=== PATIENT | male | born 1955 | race Caucasian/White ===

== ENCOUNTER 2019-11-17 10:13 | Observation (INO) | payer OTHER ==
--- NOTE | 2019-11-17 10:47 | ED ---
General Adult HPI - General Chief complaint: Chest Pain Stated complaint: chest pain Time Seen by Provider: 11/17/19 10:21 Source: patient Mode of arrival: wheelchair Limitations: no limitations - History of Present Illness Initial comments: Dictation was produced using [employer] dictation software. please excuse any grammatical, word or spelling errors. This patient was cared for during a federal and state declared state of emergency secondary to Covid 19 Chief Complaint: 64-year-old male past medical history dyslipidemia, migraines and depression presents with chest pain. History of Present Illness: 64-year-old male who presents with chest pain. Patient reports that his symptoms started this morning after waking up. States that the pain as sharp located to his substernal area radiates to his back. Patient states his pain is exacerbated by movement. Patient has any shortness of breath. He states that his symptoms are more improved since when they initially started. Currently he reports that his pain is very. He also complains of left paracervical neck and trapezius tightness. Patient states the pain also radiates slightly to his left shoulder. Denies any numbness or paresthesias to his arm. The ROS documented in this emergency department record has been reviewed and confirmed by me. Those systems with pertinent positive or negative responses have been documented in the HPI. All other systems are other negative and/or noncontributory. PHYSICAL EXAM: General Impression: Alert and oriented x3, not in acute distress HEENT: Normocephalic atraumatic, extra-ocular movements intact, pupils equal and reactive to light bilaterally, mucous membranes moist, bogginess to the left para's cervical soft tissue Cardiovascular: Heart regular rate and rhythm Chest: Able to complete full sentences, no retractions, no tachypnea Abdomen: abdomen soft, non-tender, non-distended, no organomegaly Musculoskeletal: Pulses present and equal in all extremities, no peripheral edema Motor: no focal deficits noted Neurological: CN II-XII grossly intact, no focal motor or sensory deficits noted Skin: Intact with no visualized rashes Psych: Normal affect and mood ED course: 64-year-old male presents with atypical chest pain with typical features. Upon arrival are within acceptable limits. EKG does not show any s igns of ischemia or infarction. Lab and x-rays unremarkable patient patient reevaluated at bedside with stable medical condition. Patient be admitted for serial troponins and cardiology consultation. EKG interpretation: Ventricular rate 91, normal sinus rhythm, IL interval 162, QRS 86, QTC 447. No IL prolongation, no QTC prolongation, no ST or T-wave changes noted. Overall, this EKG is unremarkable - Related Data Allergies Allergy/AdvReac Type Severity Reaction Status Date / Time No Known Allergies Allergy Verified 11/17/19 10:19 Review of Systems ROS Statement: Those systems with pertinent positive or pertinent negative responses have been documented in the HPI. ROS Other: All systems not noted in ROS Statement are negative. Past Medical History Past Medical History: Hyperlipidemia History of Any Multi-Drug Resistant Organisms: None Reported Past Surgical History: Hernia Repair Past Psychological History: No Psychological Hx Reported Smoking Status: Never smoker Past Alcohol Use History: Occasional Past Drug Use History: None Reported General Exam Limitations: no limitations Course Vital Signs 11/17/19 11/17/19 11/17/19 10:14 11:00 11:30 Temperature 97.9 F Pulse Rate 96 78 75 Respiratory 18 15 15 Rate Blood Pressure 177/91 186/113 162/93 O2 Sat by Pulse 97 98 98 Oximetry Medical Decision Making - Lab Data Result diagrams: 11/17/19 10:48 Lab Results 11/17/19 11/17/19 11/17/19 Range/Units 10:48 10:48 10:48 D-Dimer 0.19 (<0.60) mg/L FEU Sodium 136 L (137-145) mmol/L Potassium 4.1 (3.5-5.1) mmol/L Chloride 103 (98-107) mmol/L Carbon Dioxide 25 (22-30) mmol/L Anion Gap 8 mmol/L BUN 18 (9-20) mg/dL Creatinine 1.03 (0.66-1.25) mg/dL Est GFR (CKD-EPI)AfAm 89 (>60 ml/min/1.73 sqM) Est GFR (CKD-EPI)NonAf 77 (>60 ml/min/1.73 sqM) Glucose 117 H (74-99) mg/dL Calcium 9.1 (8.4-10.2) mg/dL Total Bilirubin 0.8 (0.2-1.3) mg/dL AST 47 (17-59) U/L ALT 30 (4-49) U/L Alkaline Phosphatase 65 (38-126) U/L Troponin I <0.012 (0.000-0.034) ng/mL Total Protein 6.8 (6.3-8.2) g/dL Albumin 4.6 (3.5-5.0) g/dL Lipase 134 (23-300) U/L Disposition Clinical Impression: Chest pain Disposition: ADMITTED IP TO THIS HOSP Condition: Fair Referrals: [facility],Clinic [Primary Care Provider] - 1-2 days Decision Time: 11:45
--- NOTE | 2019-11-17 11:06 | XR ---
EXAMINATION TYPE: XR chest 2V DATE OF EXAM: 11/17/2019 COMPARISON: NONE HISTORY: Left-sided chest pain. TECHNIQUE: Frontal and lateral views of the chest are obtained. FINDINGS: There is no focal air space opacity, pleural effusion, or pneumothorax seen. The cardiac silhouette size is within normal limits. Spine is straightened on the lateral view. IMPRESSION: No acute cardiopulmonary process.
[2019-11-17 11:13] LABS: Albumin 4.6 g/dL (3.5-5.0); Calcium 9.1 mg/dL (8.4-10.2); Potassium 4.1 mmol/L (3.5-5.1); Total Bilirubin 0.8 mg/dL (0.2-1.3); Total Protein 6.8 g/dL (6.3-8.2)
[2019-11-17] MEDS ORDERED: ASPIRIN 81 MG PO STA (11:39)
[2019-11-17] MEDS ORDERED: NITROGLYCERIN SL TABS 0.4 MG TAB SUBLINGUAL PRN (11:43)
--- NOTE | 2019-11-17 12:12 | P.HPIM ---
History of Present Illness This is a pleasant 64 years old male with past medical history of hyperlipidemia. He follows up on the BAL clinic. Presents of 20 minutes to 25 minutes chest pain that happened about 2 hours ago, currently she is chest pain- free however it was 8/10 when it happened on the left side nonradiating without like sharp associated with little dizziness but no coughing or dyspnea or vomiting, no sweating. He has little back pain as well. He denies smoking or illicit tracts, occasional drinks alcohol. Negative d- dimer 0.19, BMP is unremarkable. Review of Systems CONSTITUTIONAL: No fever, no malaise, no fatigue. HEENT: No recent visual problems or hearing problems. Denied any sore throat. CARDIOVASCULAR: No orthopnea, PND, no palpitations, no syncope. PULMONARY: No shortness of breath, no cough, no hemoptysis. GASTROINTESTINAL: No diarrhea, no nausea, no vomiting, no abdominal pain. Normo active bowel sounds. NEUROLOGICAL: No headaches, no weakness, no numbness. HEMATOLOGICAL: Denies any bleeding or petechiae. GENITOURINARY: Denies any burning micturition, frequency, or urgency. MUSCULOSKELETAL/RHEUMATOLOGICAL: Denies any joint pain, swelling, or any muscle pain. ENDOCRINE: Denies any polyuria or polydipsia. Past Medical History Past Medical History: Hyperlipidemia History of Any Multi-Drug Resistant Organisms: None Reported Past Surgical History: Hernia Repair Past Psychological History: No Psychological Hx Reported Smoking Status: Never smoker Past Alcohol Use History: Occasional Past Drug Use History: None Reported Medications and Allergies Allergies Allergy/AdvReac Type Severity Reaction Status Date / Time No Known Allergies Allergy Verified 11/17/19 10:19 Physical Exam Vitals: Vital Signs Temp Pulse Resp BP Pulse Ox 11/17/19 11:30 75 15 162/93 98 11/17/19 11:00 78 15 186/113 98 11/17/19 10:14 97.9 F 96 18 177/91 97 Intake and Output 11/16/19 11/17/19 11/17/19 22:59 06:59 14:59 Other: Weight 74.843 kg GENERAL: The patient is alert and oriented x3, not in any acute distress. Well developed, well nourished. HEENT: Pupils are round and equally reacting to light. EOMI. No scleral icterus. No conjunctival pallor. Normocephalic, atraumatic. No pharyngeal erythema. No thyromegaly. CARDIOVASCULAR: S1 and S2 present. No murmurs, rubs, or gallops. PULMONARY: Chest is clear to auscultation, no wheezing or crackles. ABDOMEN: Soft, nontender, nondistended, normoactive bowel sounds. No palpable or ganomegaly. MUSCULOSKELETAL: No joint swelling or deformity. EXTREMITIES: No cyanosis, clubbing, or pedal edema. NEUROLOGICAL: Gross neurological examination did not reveal any focal deficits. SKIN: No rashes. No petechiae Results CBC & Chem 7: 11/17/19 10:48 Labs: Abnormal Lab Results - Last 24 Hours (Table) 11/17/19 Range/Units 10:48 Sodium 136 L (137-145) mmol/L Glucose 117 H (74-99) mg/dL Assessment and Plan Assessment: Chest pain, rule out cardiac causes. Patient is currently chest pain-free MONITORING. D-DIMER IS NEGATIVE HYPERLIPIDEMIA Plan: This is a pleasant 64 years old male who presents with chest pain. We will do serial troponins and EKG. Cardiology consult. Check echocardiogram, telemetry monitoring. Labs and medication were reviewed.. Continue same treatment. Continue with symptomatic treatment. Resume home medication. Monitor lytes and vitals. DVT and GI prophylaxis. Further recommendations of the clinical course of the patient DVT prophylaxis: Subcutaneous heparin GI Prophylaxis: No need
[2019-11-17] MEDS ORDERED: IBUPROFEN 600 MG TAB PO STA (17:17)
[2019-11-17] MEDS ORDERED: CALCIUM CARBONATE 500 MG CHEWABLE PO PRN (20:16)
[2019-11-17] MEDS: ATORVASTATIN 20 MG TAB PO SCH (20:39)
[2019-11-18] MEDS: ACETAMINOPHEN TAB 325 MG TAB PO PRN ×2 (00:54→10:14)
[2019-11-18 02:32] LABS: Cholesterol 164 mg/dL (<200); HDL Cholesterol 55 mg/dL (40-60); LDL Cholesterol,Calculated 90 mg/dL (0-99); Triglycerides 96 mg/dL (<150)
[2019-11-18] MEDS: ASPIRIN 325 MG TAB PO SCH (09:09)
[2019-11-18] MEDS: PARoxetine 20 MG TAB PO SCH (09:09)
--- NOTE | 2019-11-18 09:45 | P.CRDCN ---
History of Present Illness Consult date: 11/18/19 Chief complaint: Chest pain History of present illness: This is a very pleasant 64-year-old gentleman with a past medical history significant for dyslipidemia but no diabetes or smoking or family history of CAD presented to the hospital complaining of chest discomfort. He describes intermittent episodes of atypical chest discomfort. The discomfort is mainly on the left side of the chest as sharp kind of discomfort without any radiation to the arms or neck or shoulders and without any associated symptoms of shortness of breath or sweating or dizziness or syncope. The discomfort seems to be reproducible on examination. The cardiac workup overall came in to be unremarkable. The chest x-ray did not show any acute abnormalities. The c ardiac enzymes came in to be unremarkable. The chest x-ray showed no acute abnormalities as well. He is chest pain-free at this point. I am going to schedule the patient to undergo a stress test to rule out severe underlying coronary artery disease and also an echocardiogram was Doppler. We'll continue following up with the patient. Past Medical History Past Medical History: GERD/Reflux, Hyperlipidemia, Pneumonia Additional Past Medical History / Comment(s): Occasional lower back pain, recent upper back pain, constipation. History of Any Multi-Drug Resistant Organisms: MRSA Date of last positivie culture/infection: 2011 or 2012 MDRO Source:: R foot Past Surgical History: Hernia Repair Additional Past Surgical History / Comment(s): Hernia repair as infant, R foot I&D Past Anesthesia/Blood Transfusion Reactions: No Reported Reaction, Motion Sickness Smoking Status: Never smoker - Past Family History Mother Family Medical History: Hypertension Additional Family Medical History / Comment(s): Mother is living. Father Family Medical History: Respiratory Disorder Additional Family Medical History / Comment(s): Father is . Medications and Allergies Home Medications Medication Instructions Recorded Confirmed Type Aspirin/Acetaminophen/Caffeine 2 tab PO Q12H PRN 11/17/19 11/17/19 History [Excedrin Extra Strength Caplet] Atorvastatin [Lipitor] 20 mg PO HS 11/17/19 11/17/19 History Calcium Carbonate [Tums] 1,500 mg PO DAILY PRN 11/17/19 11/17/19 History PARoxetine HCL [Paxil] 20 mg PO DAILY 11/17/19 11/17/19 History Allergies Allergy/AdvReac Type Severity Reaction Status Date / Time No Known Allergies Allergy Verified 11/17/19 13:37 Physical Exam Vitals: Vital Signs Temp Pulse Pulse Resp BP BP Pulse Ox 11/18/19 03:00 97.8 F 76 18 167/92 98 11/17/19 21:00 97.6 F 67 18 132/84 98 11/17/19 15:00 98.2 F 81 16 162/90 99 11/17/19 12:29 97.9 F 79 16 175/100 98 11/17/19 11:30 75 15 162/93 98 11/17/19 11:00 78 15 186/113 98 11/17/19 10:14 97.9 F 96 18 177/91 97 Intake and Output 11/17/19 11/18/19 11/18/19 22:59 06:59 14:59 Intake Total 640 450 Balance 640 450 Intake: Oral 640 450 Other: Voiding Method Toilet Toilet # Voids 2 2 - Constitutional General appearance: no acute distress - Respiratory Respiratory: bilateral: CTA - Cardiovascular Rhythm: regular Heart sounds: normal: S1, S2 Results 11/17/19 10:48 Cardiac Enzymes 11/17/19 11/17/19 11/17/19 Range/Units 10:48 10:48 13:45 AST 47 (17-59) U/L Troponin I <0.012 <0.012 (0.000-0.034) ng/mL 11/17/19 Range/Units 16:01 AST (17-59) U/L Troponin I <0.012 (0.000-0.034) ng/mL Lipids 11/17/19 Range/Units 10:48 Triglycerides 96 (<150) mg/dL Cholesterol 164 (<200) mg/dL HDL Cholesterol 55 (40-60) mg/dL Comprehensive Metabolic Panel 11/17/19 Range/Units 10:48 Sodium 136 L (137-145) mmol/L Potassium 4.1 (3.5-5.1) mmol/L Chloride 103 (98-107) mmol/L Carbon Dioxide 25 (22-30) mmol/L BUN 18 (9-20) mg/dL Creatinine 1.03 (0.66-1.25) mg/dL Glucose 117 H (74-99) mg/dL Calcium 9.1 (8.4-10.2) mg/dL AST 47 (17-59) U/L ALT 30 (4-49) U/L Alkaline Phosphatase 65 (38-126) U/L Total Protein 6.8 (6.3-8.2) g/dL Albumin 4.6 (3.5-5.0) g/dL Current Medications Generic Name Dose Route Start Last Admin Trade Name Freq PRN Reason Stop Dose Admin Acetaminophen 650 mg 11/17/19 17:19 11/18/19 00:54 Tylenol Tab PO 650 mg Q6HR PRN Administration Fever and/ or Mild Pain Aspirin 325 mg 11/18/19 09:00 11/18/19 09:09 Aspirin PO 325 mg DAILY ROSALINDA Administration Atorvastatin Calcium 20 mg 11/17/19 21:00 11/17/19 20:39 Lipitor PO 20 mg HS ROSALINDA Administration Calcium Carbonate/Glycine 1,500 mg 11/17/19 20:16 Tums PO DAILY PRN Heartburn Nitroglycerin 0.4 mg 11/17/19 11:43 Nitrostat SUBLINGUAL Q5M PRN Chest Pain Paroxetine HCl 20 mg 11/18/19 09:00 11/18/19 09:09 Paxil PO 20 mg DAILY ROSALINDA Administration Intake and Output 11/17/19 11/18/19 11/18/19 22:59 06:59 14:59 Intake Total 640 450 Balance 640 450 Intake: Oral 640 450 Other: Voiding Method Toilet Toilet # Voids 2 2 11/17/19 10:48 Assessment and Plan Assessment: Assessment Atypical chest discomfort Dyslipidemia Plan Acute coronary event was ruled out Stress test to rule out severe CAD An echocardiogram was Doppler Follow-up with the patient
--- NOTE | 2019-11-18 10:46 | CT ---
EXAMINATION TYPE: CT thoracic spine wo con DATE OF EXAM: 11/18/2019 COMPARISON: None. HISTORY: Mid thoracic back pain CT DLP: 746.5 mGycm Automated exposure control for dose reduction was used. FINDINGS: Thoracic spine shows satisfactory alignment without evidence for acute fracture or dislocation. Verte bral body heights and disc space heights are fairly well-maintained. There is mild multilevel anterio r and lateral spurring. Spinal canal is preserved. Visualized lungs are grossly clear. Paraspinal muscle bulk is maintained. Visualized ribs are unremar kable. IMPRESSION: As above.
--- NOTE | 2019-11-18 14:00 | ECHOF ---
Referral Reason: MEASUREMENTS -------- HEIGHT: 170.2 cm WEIGHT: 74.8 kg BP: RVIDd: 2.0 cm (< 3.3) IVSd: 1.2 cm (0.6 - 1.1) LVIDd: 4.0 cm (3.9 - 5.3) LVPWd: 1.4 cm (0.6 - 1.1) IVSs: 1.5 cm LVIDs: 3.0 cm LVPWs: 1.6 cm Ao Diam: 3.1 cm (2.0 - 3.7) AV Cusp: 2.2 cm (1.5 - 2.6) LA Diam: 3.0 cm (2.7 - 3.8) MV EXCURSION: 13.883 mm (> 18.000) MV EF SLOPE: 81 mm/s (70 - 150) EPSS: 0.2 cm MV E Ab: 0.72 m/s MV DecT: 214 ms MV A Ab: 0.82 m/s MV E/A Ratio: 0.88 RAP: 5.00 mmHg RVSP: 9.49 mmHg FINDINGS -------- This was a technically good study. The left ventricular size is normal. There is mild concentric left ventricular hypertrophy. Overa ll left ventricular systolic function is normal with, an EF between 55 - 60 %. The right ventricle is normal in size. The left atrial size is normal. The right atrial size is normal. The aortic valve is trileaflet and appears structurally normal. The mitral valve is normal. There is trace mitral regurgitation. The tricuspid valve appears structurally normal. Trace tricuspid regurgitation present. Right ludivian tricular systolic pressure is normal at < 35 mmHg. There is no pulmonic regurgitation present. The aortic root size is normal. Normal inferior vena cava with normal inspiratory collapse consistent with estimated right atrial pre ssure of 5 mmHg. There is no pericardial effusion. CONCLUSIONS -------- 1. The left ventricular size is normal. 2. There is mild concentric left ventricular hypertrophy. 3. Overall left ventricular systolic function is normal with, an EF between 55 - 60 %. 4. There is trace mitral regurgitation. 5. Trace tricuspid regurgitation present. OUTPATIENT THERAPIST: Jo Pat RDCS
[2019-11-18] MEDS ORDERED: LIDOCAINE 5% PATCH TOPICAL SCH (19:00)
--- NOTE | 2019-11-18 20:34 | P.PN ---
Subjective This is a pleasant 64 years old male with past medical history of hyperlipidemia. He follows up on the BAL clinic. Presents of 20 minutes to 25 minutes chest pain that happened about 2 hours ago, currently she is chest pain- free however it was 8/10 when it happened on the left side nonradiating without like sharp associated with little dizziness but no coughing or dyspnea or vomiting, no sweating. He has little back pain as well. He denies smoking or illicit tracts, occasional drinks alcohol. Negative d- dimer 0.19, BMP is unremarkable. 11/18/2019 Patient is awake. No chest pain but still have back pain in the upper third of the thorax towards the left paraspinal area i,e between the spine and scapula with tenderness, CT of the thorax was done which was unremarkable, continue with pain management. Patient also denies trauma. State Game [employer] evaluated the patient and recommended stress test and echocardiogram which are pending labs and vitals reviewed Review of Systems CONSTITUTIONAL: No fever, no malaise, no fatigue. HEENT: No recent visual problems or hearing problems. Denied any sore throat. CARDIOVASCULAR: No orthopnea, PND, no palpitations, no syncope. PULMONARY: No shortness of breath, no cough, no hemoptysis. GASTROINTESTINAL: No diarrhea, no nausea, no vomiting, no abdominal pain. Normoactive bowel sounds. NEUROLOGICAL: No headaches, no weakness, no numbness. HEMATOLOGICAL: Denies any bleeding or petechiae. GENITOURINARY: Denies any burning micturition, frequency, or urgency. MUSCULOSKELETAL/RHEUMATOLOGICAL: Denies any joint pain, swelling, or any muscle pain. ENDOCRINE: Denies any polyuria or polydipsia. Active Medications Generic Name Dose Route Start Last Admin Trade Name Freq PRN Reason Stop Dose Admin Acetaminophen 650 mg 11/17/19 17:19 11/18/19 10:14 Tylenol Tab PO 650 mg Q6HR PRN Administration Fever and/ or Mild Pain Aspirin 325 mg 11/18/19 09:00 11/18/19 09:09 Aspirin PO 325 mg DAILY ROSALINDA Administration Atorvastatin Calcium 20 mg 11/17/19 21:00 11/17/19 20:39 Lipitor PO 20 mg HS ROSALINDA Administration Calcium Carbonate/Glycine 1,500 mg 11/17/19 20:16 Tums PO DAILY PRN Heartburn Lidocaine 1 patch 11/18/19 19:00 Lidoderm TOPICAL DAILY@1900 ROSALINDA Nitroglycerin 0.4 mg 11/17/19 11:43 Nitrostat SUBLINGUAL Q5M PRN Chest Pain Paroxetine HCl 20 mg 11/18/19 09:00 11/18/19 09:09 Paxil PO 20 mg DAILY ROSALINDA Administration Objective - Vital Signs Vital signs: Vital Signs Temp 97.8 F 11/18/19 15:00 Pulse 83 11/18/19 15:00 Resp 18 11/18/19 15:00 BP 147/78 11/18/19 15:00 Pulse Ox 97 11/18/19 15:00 Intake & Output 11/18/19 11/18/19 11/19/19 06:59 18:59 06:59 Intake Total 450 780 Balance 450 780 Intake: Oral 450 780 Other: Voiding Method Toilet Toilet # Voids 2 3 - Exam GENERAL: The patient is alert and oriented x3, not in any acute distress. Well developed, well nourished. HEENT: Pupils are round and equally reacting to light. EOMI. No scleral icterus. No conjunctival pallor. Normocephalic, atraumatic. No pharyngeal erythema. No thyromegaly. CARDIOVASCULAR: S1 and S2 present. No murmurs, rubs, or gallops. PULMONARY: Chest is clear to auscultation, no wheezing or crackles. ABDOMEN: Soft, nontender, nondistended, normoactive bowel sounds. No palpable organomegaly. MUSCULOSKELETAL: No joint swelling or deformity. EXTREMITIES: No cyanosis, clubbing, or pedal edema. NEUROLOGICAL: Gross neurological examination did not reveal any focal deficits. SKIN: No rashes. no petechiae. - Labs CBC & Chem 7: 11/17/19 10:48 Assessment and Plan Assessment: Chest pain, rule out cardiac causes. Patient is currently chest pain-free MONITORING. D-DIMER IS NEGATIVE HYPERLIPIDEMIA Plan: This is a pleasant 64 years old male who presents with chest pain. We will do serial troponins and EKG. Cardiology consult. Check echocardiogram, telemetry monitoring. Labs and medication were reviewed.. Continue same treatment. Continue with symptomatic treatment. Resume home medication. Monitor lytes and vitals. DVT and GI prophylaxis. Further recommendations of the clinical course of the patient DVT prophylaxis: Subcutaneous heparin GI Prophylaxis: No need
[2019-11-18] MEDS: ATORVASTATIN 20 MG TAB PO SCH (20:37)
[2019-11-19] MEDS: ACETAMINOPHEN TAB 325 MG TAB PO PRN ×2 (03:23→09:42)
[2019-11-19 08:32] VITALS: BP 155/83; PULSE 79; RESP 18; TEMP 97.9
[2019-11-19] MEDS ORDERED: amLODIPine 5 MG TAB PO SCH (09:00)
[2019-11-19] MEDS: PARoxetine 20 MG TAB PO SCH (09:43)
[2019-11-19] MEDS: ASPIRIN 325 MG TAB PO SCH (09:43)
--- NOTE | 2019-11-19 10:23 | ECHOS ---
STRESS ECHOCARDIOGRAM DATE OF SERVICE: 11/19/2019 PROCEDURE: Stress echocardiogram. INDICATION: Chest pain. STRESS DATA: Heart rate 80, pressure is 154/77 mmHg. Baseline EKG showed sinus mechanism. The patient exercised on the treadmill according to Adam protocol for a total of 9 minutes and achieved 10.5 METS. Max heart rate was 154 which is about 100% of maximum predicted heart rate. Maximum blood pressure was 189/70 mmHg. Clinically the patient did not have any symptoms of chest pain or chest discomfort during the testing or on recovery and the EKG did not show any significant ST or T-wave abnormalities concerning for ischemia. ECHOCARDIOGRAM IMAGES: Echocardiogram images from parasternal long axis view, parasternal short axis view, apical 4 chamber and apical 2 chamber were obtained as the baseline images at the peak of the heart rate as well as on recovery. The echocardiogram images showed good augmentation in the left ventricular systolic function without any evidence of wall motion abnormalities concerning for ischemia. CONCLUSION: 1. Excellent exercise tolerance. 2. Normal EKG in response to exercise. 3. Normal echocardiogram in response to exercise. 4. Essentially normal stress test for the patient. MMODL / IJN: [id number] /
--- NOTE | 2019-11-19 12:03 | P.PN ---
Subjective Progress Note Date: 11/19/19 Principal diagnosis: Chest pain This is a pleasant 64-year-old gentleman was multiple risk factors for coronary artery disease was admitted to the hospital yesterday with chest discomfort and ruled out for acute coronary event. He underwent myocardial perfusion imaging stress test today and that came in to be unremarkable for ischemia. The patient was seen today. He is asymptomatic at this point. From the cardiac standpoint, the patient can be discharged home. Objective - Vital Signs Vital signs: Vital Signs Temp 97.9 F 11/19/19 08:20 Pulse 79 11/19/19 08:20 Resp 18 11/19/19 08:20 BP 155/83 11/19/19 08:20 Pulse Ox 100 11/19/19 08:20 Intake & Output 11/18/19 11/19/19 11/19/19 18:59 06:59 18:59 Intake Total 780 120 Balance 780 120 Weight 74.84 kg Intake: Oral 780 120 Other: Voiding Method Toilet Toilet Toilet # Voids 3 2 - Constitutional General appearance: Present: no acute distress - Respiratory Respiratory: bilateral: CTA - Cardiovascular Rhythm: regular Heart sounds: normal: S1, S2 - Labs CBC & Chem 7: 11/17/19 10:48 Assessment and Plan Assessment: Assessment Atypical chest discomfort Dyslipidemia Plan The stress test came in to be unremarkable The patient can be discharged home
--- NOTE | 2019-11-19 13:32 | P.DS ---
Providers Date of admission: 11/17/19 11:44 Attending physician: Lorrie Govea Consults: 11/17/19 11:43 Consult Physician Urgent Consulting Provider: Ofelia Kang Consult Reason/Comments: chest pain Do you want consulting provider notified?: Yes Primary care physician: [facility] Hospital Course: Diagnoses: Chest pain, rule out cardiac causes. Patient is currently chest pain-free MONITORING. D-DIMER IS NEGATIVE Left upper paraspinal back pain with negative CT of the thorax spine essential hypertension, new onset HYPERLIPIDEMIA Hospital course: This is a pleasant 64 years old male with past medical history of hyperlipidemia. He follows up on the [facility] clinic. Presents of 20 minutes to 25 minutes chest pain that happened about 2 hours prior to coming to the hospital, currently she is chest pain-free , patient has been evaluated by animal impersonator and he underwent stress test Norvasc is started for high blood pressure Also patient was complaining from left upper back pain between the thoracic spine and this With some tenderness, he denies trauma. CT of the thorax was negative. Most likely musculoskeletal and treated symptomatically with gradual improvement. On the day of discharge he denies chest pain or dyspnea, no coughing, no abdominal pain, is tolerating diet well, no change in urine or bowel habits, no fever Patient was cleared for discharge by cardiology team Problems and management plan were discussed with the patient and he verbalized understanding and acceptance Patient was found stable and can be discharged home however he needs follow-up as an outpatient. Patient was instructed to follow up with PCP at the [facility] within one week , and with his animal impersonator Dr. Reynolds in 1-2 weeks and patient agrees Gen: patient is a AAOx3, no distress CVS: S1-S2, RRR, no murmur Lungs: B/L CTA, no wheezing Abdomen: soft, no distention, no tenderness, positive bowel sounds Extremity: no leg edema or induration Time spent more than 35 minutes Patient Condition at Discharge: Fair Plan - Discharge Summary Discharge Rx Participant: No New Discharge Prescriptions: New Aspirin 325 mg PO DAILY #20 tab Lidocaine 5% Patch [Lidoderm 5% Patch] 1 patch TOPICAL DAILY@1900 5 Days #5 patch amLODIPine [Norvasc] 5 mg PO DAILY #30 tab Acetaminophen Tab [Tylenol] 650 mg PO Q6HR PRN tab PRN Reason: Fever and/ or Mild Pain Continue PARoxetine HCL [Paxil] 20 mg PO DAILY Calcium Carbonate [Tums] 1,500 mg PO DAILY PRN PRN Reason: Heartburn Aspirin/Acetaminophen/Caffeine [Excedrin Extra Strength Caplet] 2 tab PO Q12H PRN PRN Reason: Migraine Headache Atorvastatin [Lipitor] 20 mg PO HS Discharge Medication List Aspirin/Acetaminophen/Caffeine [Excedrin Extra Strength Caplet] 2 tab PO Q12H PRN 11/17/19 [History] Atorvastatin [Lipitor] 20 mg PO HS 11/17/19 [History] Calcium Carbonate [Tums] 1,500 mg PO DAILY PRN 11/17/19 [History] PARoxetine HCL [Paxil] 20 mg PO DAILY 11/17/19 [History] Acetaminophen Tab [Tylenol] 650 mg PO Q6HR PRN tab 11/19/19 [Rx] Aspirin 325 mg PO DAILY #20 tab 11/19/19 [Rx] Lidocaine 5% Patch [Lidoderm 5% Patch] 1 patch TOPICAL DAILY@1900 5 Days #5 patch 11/19/19 [Rx] amLODIPine [Norvasc] 5 mg PO DAILY #30 tab 11/19/19 [Rx] Follow up Appointment(s)/Referral(s): Ryan Mcadams MD [STAFF PHYSICIAN] - 2 Weeks [facility],Clinic [Primary Care Provider] - 1-2 days Activity/Diet/Wound Care/Special Instructions: Heart healthy diet Activity is limited till you see your doctor
== END 2019-11-19 14:56 | disposition home or self-care (01) ==
LOC: EC 10:13 → 3NCARDOBS 11:44
PROVIDERS: ADMIT Hospitalist; ATTEND Hospitalist
DX: R07.9 Chest pain, unspecified (principal); M54.6 Pain in thoracic spine; I11.9 Hypertensive heart disease without heart failure; E78.5 Hyperlipidemia, unspecified; F32.9 Major depressive disorder, single episode, unspecified; K21.9 Gastro-esophageal reflux disease without esophagitis; Z86.69 Personal history of other diseases of the nervous system and sense organs; Z87.19 Personal history of other diseases of the digestive system; Z98.890 Other specified postprocedural states; Z87.01 Personal history of pneumonia (recurrent); Z86.14 Personal history of Methicillin resistant Staphylococcus aureus infection; Z87.898 Personal history of other specified conditions; Z79.899 Other long term (current) drug therapy; Z82.49 Family history of ischemic heart disease and other diseases of the circulatory system; Z83.6 Family history of other diseases of the respiratory system
CPT/HCPCS: 93005 ×2; 99285; 36415; 93306; 93351; 85379; 80061; 80053; 83690; 84484; 71046; 72128; G0378 ×3

== ENCOUNTER 2021-06-16 08:06 | Day surgery (SDC) | payer OTHER ==
[2021-06-13 11:14] VITALS: BMI 25.4
[~2021-06-16 08:06] MED LIST: LACTATED RINGERS 1,000 ML IV SCH
[2021-06-16 08:35] VITALS: TEMP 97.4
[2021-06-16] MEDS ORDERED: LIDOCAINE 1% INJ 10MG/ML (20 ML MDV) ONE (09:17)
[2021-06-16] MEDS ORDERED: PROPOFOL 10 MG/ML 20 ML VIAL IV ONE (09:17)
--- NOTE | 2021-06-16 09:41 | P.PCN ---
Date of Procedure: 06/16/21 Procedure(s) Performed: BRIEF HISTORY: Patient is a 65-year-old pleasant white male scheduled for an elective colonoscopy as a part of screening for colorectal neoplasia. PROCEDURE PERFORMED: Colonoscopy with snare polypectomy. PREOPERATIVE DIAGNOSIS: Screening for colon cancer. IV sedation per Anesthesia. PROCEDURE: After informed consent was obtained, the patient, was brought into the endoscopy unit. IV sedation was administered by Anesthesia under continuous monitoring. Digital rectal examination was normal. Initially the Olympus CF-160 flexible video colonoscope was then inserted in the rectum, gradually advanced into the cecum without any difficulty. Careful examination was performed as the scope was gradually being withdrawn. Ileocecal valve and the appendiceal orifice were visualized and appeared normal. Prep was excellent. Mucosa of the cecum, ascending colon, appeared normal. In the transverse colon there was a 7 mma polyp removed by snare polypectomy. In the sigmoid: was a 5 mm polyp removed by snare polypectomy. Rest of the transverse colon, descending colon, sigmoid c olon, and rectum appeared normal. Retroflexion was performed in the rectum and no lesions were seen. The patient tolerated the procedure well. IMPRESSION: 7 mm transverse colon polyp status post polypectomy 5 mm sigmoid polyp status post polypectomy. RECOMMENDATIONS: Findings of this examination were discussed with the patient as well as his family. He was advised to follow with the biopsy results. If the biopsy reveals adenoma he can have a repeat colonoscopy in 5 years..
[2021-06-16 10:06] VITALS: BP 127/79; PULSE 76; RESP 16
== END 2021-06-16 10:33 | disposition home or self-care (01) ==
LOC: ORWHC2ENDO 08:06
PROVIDERS: ATTEND Internal Medicine Gastroenterology
DX: Z12.11 Encounter for screening for malignant neoplasm of colon (principal); D12.3 Benign neoplasm of transverse colon; K63.5 Polyp of colon; I10 Essential (primary) hypertension; E78.5 Hyperlipidemia, unspecified; K21.9 Gastro-esophageal reflux disease without esophagitis; Z98.890 Other specified postprocedural states; Z97.2 Presence of dental prosthetic device (complete) (partial); Z79.899 Other long term (current) drug therapy
CPT/HCPCS: 88305; 45385; J2001; J2704

== ENCOUNTER 2022-01-23 17:32 | Inpatient (IN) | payer OTHER, MEDICARE ==
--- NOTE | 2022-01-23 19:03 | ED ---
General Adult HPI - General Chief complaint: Weakness Stated complaint: Weakness,R arm numbness Time Seen by Provider: 01/23/22 18:58 Source: patient Mode of arrival: ambulatory Limitations: no limitations - History of Present Illness Initial comments: Dictation was produced using [employer] dictation software. please excuse any grammatical, word or spelling errors. Chief Complaint: 66-year-old male presents emergency department for right hand numbness History of Present Illness: 66-year-old male is watching TV earlier today when his right hand went completely numb. Patient states that last for several minutes. The numbness began going up into his right elbow. Patient states that after several minutes his sensation in his hand return however still not entirely 100%. Patient states that he feels a little lightheaded. No nausea vomiting. No chest pain. No shortness of breath. Patient has any history of peripheral vascular disease. The ROS documented in this emergency department record has been reviewed and confirmed by me. Those systems with pertinent positive or negative responses have been documented in the HPI. All other systems are other negative and/or noncontributory. PHYSICAL EXAM: General Impression: Alert and oriented x3, not in acute distress HEENT: Normocephalic atraumatic, extra-ocular movements intact, pupils equal and reactive to light bilaterally, mucous membranes moist. Cardiovascular: Heart regular rate and rhythm Chest: Able to complete full sentences, no retractions, no tachypnea Abdomen: abdomen soft, non-tender, non-distended, no organomegaly Musculoskeletal: Decreased right radial pulse compared to the left, no peripheral edema Motor: no focal deficits noted Neurological: CN II-XII grossly intact, no focal motor or sensory deficits noted Skin: Intact with no visualized rashes Psych: Normal affect and mood ED course: 66-year-old male presents emergency department for episode of right hand numbness. He has a decreased radial pulse in his right upper extremity. Patient states that his symptoms improved though he does feel some slight numbness to his right hand. Patient symptoms concerning for ischemic limb. Laboratory evaluation obtained. CBC, coag panel, metabolic panel is unremarkable. Computed tomography scan of the brain is unremarkable. CT angiography of the right upper extremity shows diminished distal arterial flow demonstrated distal forearm and hand suggestive of diffuse small vessel disease. Case is discussed with Dr. Gonzalez supervisor electron tube processing for vascular surgery who requests that patient be started on heparin and admitted to medicine. Pending ESR and CRP for suspicion of vasculitis. Case discussed with Mai Michele who is supervisor electron tube processing for [facility] was aware of patient. EKG interpretation: Ventricular rate 84, sinus rhythm,. Interval 160, care is 92, QTC 393. No AK prolongation, no QTC prolongation, no ST or T-wave changes noted. Overall, this EKG is unremarkable - Related Data Home Medications Medication Instructions Recorded Confirmed Aspirin/Acetaminophen/Caffeine 2 tab PO Q12H PRN 11/17/19 06/16/21 [Excedrin Extra Strength Caplet] Atorvastatin [Lipitor] 20 mg PO HS 11/17/19 06/13/21 Calcium Carbonate [Tums] 1,500 mg PO DAILY PRN 11/17/19 06/13/21 PARoxetine HCL [Paxil] 20 mg PO DAILY 11/17/19 06/16/21 Tension Headache 500 mg PO Q6H PRN 06/13/21 06/16/21 lisinopriL [Zestril] 10 mg PO DAILY 06/13/21 06/13/21 Previous Rx's Medication Instructions Recorded Acetaminophen Tab [Tylenol] 650 mg PO Q6HR PRN tab 11/19/19 Allergies Allergy/AdvReac Type Severity Reaction Status Date / Time No Known Allergies Allergy Verified 01/23/22 21:45 Review of Systems ROS Statement: Those systems with pertinent positive or pertinent negative responses have been documented in the HPI. ROS Other: All systems not noted in ROS Statement are negative. Past Medical History Past Medical History: GERD/Reflux, Hyperlipidemia, Hypertension, Osteoarthritis (OA), Pneumonia Additional Past Medical History / Comment(s): constipation.MIGRAINE HEADACHE , History of Any Multi-Drug Resistant Organisms: MRSA Date of last positivie culture/infection: 2011 or 2012 MDRO Source:: R foot Past Surgical History: Hernia Repair Additional Past Surgical History / Comment(s): Hernia repair as infant, RIGHT foot I&D, COLONOSCOPY Past Anesthesia/Blood Transfusion Reactions: No Reported Reaction, Motion Sickness Past Psychological History: Depression Smoking Status: Never smoker Past Alcohol Use History: None Reported Past Drug Use History: None Reported - Past Family History Mother Family Medical History: Hypertension Father Family Medical History: Respiratory Disorder Additional Family Medical History / Comment(s): Father is . General Exam Limitations: no limitations Course Vital Signs 01/23/22 18:40 Temperature 98 F Pulse Rate 78 Respiratory 20 Rate Blood Pressure 168/95 O2 Sat by Pulse 100 Oximetry Medical Decision Making - Lab Data Result diagrams: 01/23/22 19:12 01/23/22 19:12 Lab Results 01/23/22 01/23/22 01/23/22 Range/Units 19:12 19:12 19:12 WBC 4.9 (3.8-10.6) k/uL RBC 4.42 (4.30-5.90) m/uL Hgb 14.4 (13.0-17.5) gm/dL Hct 40.6 (39.0-53.0) % MCV 91.8 (80.0-100.0) fL MCH 32.6 (25.0-35.0) pg MCHC 35.5 (31.0-37.0) g/dL RDW 12.6 (11.5-15.5) % Plt Count 175 (150-450) k/uL MPV 8.6 Neutrophils % 59 % Lymphocytes % 27 % Monocytes % 8 % Eosinophils % 2 % Basophils % 1 % Neutrophils # 2.9 (1.3-7.7) k/uL Lymphocytes # 1.3 (1.0-4.8) k/uL Monocytes # 0.4 (0-1.0) k/uL Eosinophils # 0.1 (0-0.7) k/uL Basophils # 0.0 (0-0.2) k/uL PT 10.1 (9.0-12.0) sec INR 0.9 (<1.2) APTT 24.3 (22.0-30.0) sec Sodium 140 (137-145) mmol/L Potassium 4.4 (3.5-5.1) mmol/L Chloride 102 (98-107) mmol/L Carbon Dioxide 25 (22-30) mmol/L Anion Gap 13 mmol/L BUN 19 (9-20) mg/dL Creatinine 1.18 (0.66-1.25) mg/dL Est GFR (CKD-EPI)AfAm 74 (>60 ml/min/1.73 sqM) Est GFR (CKD-EPI)NonAf 64 (>60 ml/min/1.73 sqM) Glucose 111 H (74-99) mg/dL Calcium 9.3 (8.4-10.2) mg/dL Disposition Clinical Impression: PVD (peripheral vascular disease) Disposition: ADMITTED IP TO THIS HOSP Condition: Fair Referrals: [facility],Clinic [Primary Care Provider] - 1-2 days Decision Time: 21:51
[2022-01-23 19:30] LABS: Basophils % (A) 1 %; Eosinophils # (A) 0.1 k/uL (0-0.7); Eosinophils % (A) 2 %; HCT 40.6 % (39.0-53.0); HGB 14.4 gm/dL (13.0-17.5); Lymphocytes # (A) 1.3 k/uL (1.0-4.8); Lymphocytes % (A) 27 %; MCH 32.6 pg (25.0-35.0); MCHC 35.5 g/dL (31.0-37.0); MCV 91.8 fL (80.0-100.0); Mean Platelet Volume 8.6; Monocytes # (A) 0.4 k/uL (0-1.0); Monocytes % (A) 8 %; Neutrophils # (A) 2.9 k/uL (1.3-7.7); Neutrophils % (A) 59 %; Platelet Count 175 k/uL (150-450); RBC 4.42 m/uL (4.30-5.90); RDW 12.6 % (11.5-15.5); WBC 4.9 k/uL (3.8-10.6)
[2022-01-23 19:46] LABS: INR 0.9 (<1.2); Partial Thromboplastin Time 24.3 sec (22.0-30.0); Prothrombin Time 10.1 sec (9.0-12.0)
[2022-01-23 20:06] LABS: Calcium 9.3 mg/dL (8.4-10.2); Potassium 4.4 mmol/L (3.5-5.1)
--- NOTE | 2022-01-23 21:00 | CT ---
EXAMINATION TYPE: CT brain wo con DATE OF EXAM: 01/23/2022 COMPARISON: None HISTORY: RT hand numbness and headache. CT DLP: 1106.4 mGycm Automated exposure control for dose reduction was used. Images of the brain obtained with no contrast. Ventricles have normal size. There is no mass effect or midline shift. No sign of intracranial hemorr jcarlos. The calvarium is intact. IMPRESSION: Negative CT scan of the brain.
--- NOTE | 2022-01-23 21:12 | CT ---
EXAMINATION TYPE: CT angio upper extremity RT DATE OF EXAM: 01/23/2022 COMPARISON: None HISTORY: RT hand numbness and headache. suspect ischemic limb CT DLP: 273.1 mGycm Automated exposure control for dose reduction was used. CONTRAST: Performed with IV Contrast, patient injected with 100 mL of Isovue 370. Images obtained from the aortic arch to the tip of the finger is of the right hand with the IV contra st. There are Three-D postprocessed images. There is normal branching pattern of the great vessels on the aortic arch. There is arterial flow in the common internal and external carotid arteries bilaterally. There is some mild plaque at the left carotid artery bifurcation. No evidence of hemodynamic stenosis. There is arterial flow in the right subclavian artery. There is arterial flow in the axillary and brachial artery. There is arterial flow in the radius and ulna arteries. There is very weak contrast opacification of the distal radius and ulna arteries. At the wrist there is arterial flow in the ulnar artery but no definite flow in the di stal radial artery. Exam does not show any arterial flow in the digital and palmar arteries. No discr ete stenosis identified. IMPRESSION: There is very little distal arterial flow demonstrated in the distal forearm and hand. This is sugges tive of diffuse small vessel disease. No discrete stenosis identified.
[2022-01-23] MEDS ORDERED: HEPARIN SODIUM 1,000 UN/ML (10ML VL) IV PRN (21:36)
[2022-01-23] MEDS ORDERED: HEPARIN SODIUM 1,000 UN/ML (10ML VL) IV ONE (21:36)
[2022-01-23] MEDS ORDERED: HEPARIN SOD,PORK IN 0.45% NACL 25,000 UNIT in 0.45% NACL 1 250ML.BAG IV SCH (21:45)
[2022-01-23] MEDS ORDERED: NALOXONE 0.4 MG/ML 1 ML VIAL IV PRN (21:49)
[2022-01-23] MEDS: SODIUM CHLORIDE 0.9% 1,000 ML IV SCH (21:59)
[2022-01-23] MEDS: amLODIPine 5 MG TAB PO SCH (23:22)
--- NOTE | 2022-01-24 04:32 | P.HPIM ---
History of Present Illness H&P Date: 01/24/22 The patient is a 66-year-old male with a PMH of hyperlipidemia who presents to the emergency room with complaints of right arm numbness and weakness. The patient reports that his symptoms started earlier today at around 1 PM suddenly while he was at home. He reports initially helping numbness followed by complete paralysis of the right hand and forearm. Denied experiencing pain. He subsequently was seen at an urgent care center where he was advised to go to the emergency room. He was started on heparin infusion in the emergency room, and states that his symptoms resolved around 8 PM, shortly after initiation of the heparin. An upper extremity CTA revealed diminished arterial flow of the distal forearm and hand on the right side with suspected diffuse small vessel disease with no discrete stenosis noted. CT brain was unremarkable. EKG reveals sinus rhythm at [address]/T-wave changes noted as reviewed by me. Laboratory evaluation was unremarkable. The patient reported feeling at his baseline at the time of interview. Review of systems: Pertinent positives and negatives as discussed in HPI, a complete review of systems was performed and all other systems are negative. Physical examination: General: non toxic, no distress, appears at stated age, overweight Derm: no unusual rashes/lesions, warm Head: atraumatic, normocephalic, symmetric Eyes: EOMI, no lid lag, anicteric sclera, pupils equal round reactive to light ENT: Nose and ears atraumatic Neck: No cervical lymphadenopathy, trachea midline, supple Mouth: no lip lesion, mucus membranes moist Cardiovascular: S1S2 reg, no murmur, positive dorsalis pedis pulse bilateral, no edema, right upper extremity distal pulses 2+ Lungs: CTA bilateral, no rhonchi, no rales, no accessory muscle use Abdominal: soft, nontender to palpation, no guarding Ext: muscle strength 5 out of 5 in all 4 extremities grossly, no gross muscle atrophy, no contractures, Neuro: CN II-XI grossly intact, no gross focal neuro deficits Psych: Alert, oriented, appropriate affect Assessment/plan Right upper extremity numbness and weakness, suspected ischemia secondary to diffuse small vessel disease -Case discussed by ED physician with vascular surgery who recommended that the patient be initiated on heparin infusion -Continue with statin -Continue heparin infusion DVT prophylaxis -Heparin infusion The patient is admitted with an anticipated greater than 2 midnight stay for evaluation of right upper extremity numbness. CODE STATUS: Full Code Discussed with: Patient Anticipated discharge date: 2-[address]: Home Past Medical History Past Medical History: GERD/Reflux, Hyperlipidemia, Hypertension, Osteoarthritis (OA), Pneumonia Additional Past Medical History / Comment(s): constipation.MIGRAINE HEADACHE , History of Any Multi-Drug Resistant Organisms: MRSA Date of last positivie culture/infection: 2011 or 2012 MDRO Source:: R foot Past Surgical History: Hernia Repair Additional Past Surgical History / Comment(s): Hernia repair as infant, RIGHT foot I&D, COLONOSCOPY Past Anesthesia/Blood Transfusion Reactions: No Reported Reaction, Motion Sickness Past Psychological History: Depression Smoking Status: Never smoker Past Alcohol Use History: None Reported Past Drug Use History: None Reported - Past Family History Mother Family Medical History: Hypertension Father Family Medical History: Respiratory Disorder Additional Family Medical History / Comment(s): Father is . Medications and Allergies Home Medications Medication Instructions Recorded Confirmed Type PARoxetine [Paxil] 20 mg PO DIRECTED 01/23/22 01/23/22 History Allergies Allergy/AdvReac Type Severity Reaction Status Date / Time No Known Allergies Allergy Verified 01/23/22 22:03 Physical Exam Vitals: Vital Signs Temp Pulse Resp BP Pulse Ox 01/24/22 02:50 73 129/83 97 01/23/22 22:01 79 17 159/93 99 01/23/22 18:40 98 F 78 20 168/95 100 Intake and Output 01/23/22 01/23/22 01/24/22 14:59 22:59 06:59 Other: Weight 77.111 kg Results CBC & Chem 7: 01/23/22 19:12 01/23/22 19:12 Labs: Abnormal Lab Results - Last 24 Hours (Table) 01/23/22 Range/Units 19:12 Glucose 111 H (74-99) mg/dL
[2022-01-24] MEDS: ATORVASTATIN 80 MG TAB PO SCH ×2 (06:09→19:58)
[2022-01-24] MEDS ORDERED: PANTOPRAZOLE 40 MG/10 ML VIAL IVP SCH (09:00)
[2022-01-24] MEDS: amLODIPine 5 MG TAB PO SCH (10:25)
--- NOTE | 2022-01-24 11:13 | P.PN ---
Progress Note - Text Progress Note Date: 01/24/22 Hospitalist Interval Note Patient seen and examined at bedside. Vital signs reviewed General: non toxic, no distress, appears at stated age Derm: warm, dry Head: atraumatic, normocephalic, symmetric Eyes: EOMI, no lid lag, anicteric sclera Mouth: no lip lesion, mucus membranes moist Cardiovascular: S1S2 reg, no murmur, positive posterior tibial pulse bilateral, Lungs: CTA bilateral, no rhonchi, no rales , no accessory muscle use Abdominal: soft, nontender to palpation, no guarding, no appreciable organomegaly Ext: no gross muscle atrophy, no edema, no contractures Neuro: CN II-XI grossly intact, no focal neuro deficits Psych: Alert, oriented, appropriate affect Assessment/Plan: Right upper extremity numbness and weakness, suspected ischemia secondary to diffuse small vessel disease -On heparin drip, statin -Pending vascular surgery evaluation -CT head negative, every 4 hourly neuro checks Depression - continue home medication This is an update note for patient , for full note on 01/24/22 at 4:31. There is no charge associated with this note.
[2022-01-24] MEDS ORDERED: ACETAMINOPHEN TAB 325 MG TAB PO STA (13:54)
--- NOTE | 2022-01-24 18:37 | P.GSCN ---
History of Present Illness Consult date: 01/24/22 History of present illness: Edvin is a 66-year-old male with a past medical history of hyperlipidemia who initially presented to the ER with complaints of numbness and weakness of his right arm. He was sitting using his phone when he states he had significant weakness in the hand and inability to move his hand to continue utilizing his phone. He was seen in a emergent care Center and discuss going forward to the ER. Reportedly this was initially thought to be an arterial occlusive type issue however the patient did not admit to any pain throughout any of this episode. A CT angiogram of the arm showed no obvious area of significant occlusion, there was some questionable diminished flow in the distal forearm into the small vessel disease with no areas of discrete stenosis. A CT of the brain was also performed without any evidence of acute abnormality. An EKG showed sinus rhythm. Upon seeing the patient at the time of this consultation he denies any pain numbness weakness or issue in his hand. He states this never happened previously. He has never had any stroke or TIA like symptoms prior. He reports nonsmoking. He denies any workup and evaluation for carotid stenosis or arrhythmias in his past. Past Medical History Past Medical History: GERD/Reflux, Hyperlipidemia, Hypertension, Osteoarthritis (OA), Pneumonia Additional Past Medical History / Comment(s): constipation.MIGRAINE HEADACHE , History of Any Multi-Drug Resistant Organisms: MRSA Year Discovered:: 2011 or 2012 MDRO Source:: R foot Past Surgical History: Hernia Repair Additional Past Surgical History / Comment(s): Hernia repair as infant, RIGHT foot I&D, COLONOSCOPY Past Anesthesia/Blood Transfusion Reactions: Postoperative Nausea & Vomiting (PONV) Past Psychological History: Depression Additional Psychological History / Comment(s): Pt resides alone. He is independent. Smoking Status: Never smoker Past Alcohol Use History: None Reported Past Drug Use History: None Reported - Past Family History Mother Family Medical History: Hypertension Father Family Medical History: Respiratory Disorder Additional Family Medical History / Comment(s): Father is . Medications and Allergies Home Medications Medication Instructions Recorded Confirmed Type PARoxetine HCL [Paxil] 20 mg PO DAILY 01/24/22 01/24/22 History Allergies Allergy/AdvReac Type Severity Reaction Status Date / Time No Known Allergies Allergy Verified 01/23/22 22:03 Surgical - Exam Vital Signs Temp Pulse Resp BP Pulse Ox 98 F 78 20 168/95 100 01/23/22 18:40 01/23/22 18:40 01/23/22 18:40 01/23/22 18:40 01/23/22 18:40 Gen. is a pleasant cooperative male in no acute distress. HEENT is normal cephalic, atraumatic, extraocular motion intact. Heart appears regular in rate and rhythm. Lungs are clear bilaterally. Abdomen is soft, nontender nondistended. The patient has warm extremities throughout. He has palpable ulnar and radial pulses bilaterally. He has palpable femoral, dorsalis pedis and posterior tibial pulses bilaterally. Normal motion and sensation bi laterally. No evidence of weakness. Normal geomagnetician strength bilaterally. Cranial nerves II through XII grossly intact Results CT angiogram of the upper extremity is reviewed. There is some abnormal coursing of the brachial artery however no evidence of any significant ab normality otherwise. Flow is visualized into the vessels of the wrist. This was personally reviewed - Labs 01/23/22 19:12 01/23/22 19:12 Abnormal Lab Results - Last 24 Hours (Table) 01/23/22 01/24/22 01/24/22 Range/Units 19:12 03:59 12:15 APTT 113.3 H* 35.6 H (22.0-30.0) sec Glucose 111 H (74-99) mg/dL Diabetes panel 01/23/22 Range/Units 19:12 Sodium 140 (137-145) mmol/L Potassium 4.4 (3.5-5.1) mmol/L Chloride 102 (98-107) mmol/L Carbon Dioxide 25 (22-30) mmol/L BUN 19 (9-20) mg/dL Creatinine 1.18 (0.66-1.25) mg/dL Glucose 111 H (74-99) mg/dL Calcium 9.3 (8.4-10.2) mg/dL Calcium panel 01/23/22 Range/Units 19:12 Calcium 9.3 (8.4-10.2) mg/dL Pituitary panel 01/23/22 Range/Units 19:12 Sodium 140 (137-145) mmol/L Potassium 4.4 (3.5-5.1) mmol/L Chloride 102 (98-107) mmol/L Carbon Dioxide 25 (22-30) mmol/L BUN 19 (9-20) mg/dL Creatinine 1.18 (0.66-1.25) mg/dL Glucose 111 H (74-99) mg/dL Calcium 9.3 (8.4-10.2) mg/dL Adrenal panel 01/23/22 Range/Units 19:12 Sodium 140 (137-145) mmol/L Potassium 4.4 (3.5-5.1) mmol/L Chloride 102 (98-107) mmol/L Carbon Dioxide 25 (22-30) mmol/L BUN 19 (9-20) mg/dL Creatinine 1.18 (0.66-1.25) mg/dL Glucose 111 H (74-99) mg/dL Calcium 9.3 (8.4-10.2) mg/dL Assessment and Plan Assessment: Right upper extremity weakness/numbness, now resolved Plan: At this point I do not believe the patient has any significant arterial insufficiency as he maintains warm extremity and easily palpable peripheral pulses throughout every extremity. I would be more concerned regarding a possible TIA or strokelike symptoms. Will order a carotid Doppler at this point to evaluate for carotid stenosis. No further need for heparinization as there is no arterial occlusions identified. EKG was reviewed, appears to be without significant abnormality or evidence of arrhythmia.
--- NOTE | 2022-01-24 20:02 | US ---
EXAMINATION TYPE: US carotid duplex BILAT DATE OF EXAM: 01/24/2022 COMPARISON: NONE CLINICAL HISTORY: right arm weakness, tia. tia TECHNIQUE: Carotid duplex ultrasound examination. Indirect Doppler criteria was utilized. 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 IMPRESSION: There is mild plaque formation. Images are measurement suggests less than 20% stenosis in both senior internal auditor al carotid arteries. There is antegrade flow in the vertebral arteries. Criteria for Assigning % of Stenosis / Diameter reduction (Estimation based on the indirect measurements of the internal carotid artery velocities (ICA PSV). 1. Normal (no stenosis)=ICA PSV < 125 cm/s: ratio < 2.0: ICA EDV<40 cm/s. 2. Less than 50% stenosis=ICA PSV < 125 cm/s: ratio < 2.0: ICA EDV<40 cm/s. 3. 50 to 69% stenosis=ICA PSV of 125 to 230 cm/s: ration 2.0 ? 4.0: ICA EDV 40-100 cm/s. 4. Greater than 70% stenosis to near occlusion= ICA PSV > 230 cm/s: ratio > 4.0: ICA EDV > 100 cm/s. 5. Near occlusion= ICA PSV velocities may be low or undetectable: variable ratio and ICA EDV. 6. Total occlusion=unable to detect flow.
[2022-01-25] MEDS: SODIUM CHLORIDE 0.9% 1,000 ML IV SCH ×2 (02:19→21:35)
[2022-01-25] MEDS: ACETAMINOPHEN TAB 325 MG TAB PO PRN ×2 (04:06→09:44)
[2022-01-25] MEDS ORDERED: PANTOPRAZOLE 40 MG TABLET PO SCH (07:30)
[2022-01-25] MEDS: PARoxetine 20 MG TAB PO SCH (08:32)
[2022-01-25] MEDS ORDERED: METOCLOPRAMIDE 10 MG TAB PO STA (10:13)
[2022-01-25] MEDS: polyethylene glycoL 3350 17 GM POWD.PACK PO SCH (10:54)
--- NOTE | 2022-01-25 12:04 | P.PN ---
Subjective Progress Note Date: 01/25/22 Principal diagnosis: right arm weakness Hospital Course: 66-year-old male with history of depression presenting with right arm weakness and numbness. The numbness and weakness lasted only [address] head was negative. There was concern for possible small vessel disease in his right arm, was started on heparin drip. Also surgery was consulted, discontinue heparin drip. Patient likely had TIA. Echo and further lab work pending. Subjective: Patient seen and examined at bedside. No acute events overnight. He denies any further arm or leg weakness. He is complaining of some nausea. Pertinent positives and negatives as discussed above, a complete review of systems was performed and all other systems are negative. Vitals Signs Reviewed. General: nontoxic, no distress, appears at stated age Derm: warm, dry Head: atraumatic, normocephalic, symmetric Eyes: EOMI, no lid lag, anicteric sclera Mouth: no lip lesion, mucus membranes moist Cardiovascular: S1S2 reg, no murmur Lungs: CTA bilateral, no rhonchi, no rales , no accessory muscle use Abdominal: soft, nontender to palpation, no guarding, no appreciable organomegaly Ext: no gross muscle atrophy, no edema, no contractures Neuro: CN II-XI grossly intact, no focal neuro deficits Psych: Alert, oriented, appropriate affect Assessment and Plan: Right arm weakness Possible TIA -CT head negative -ABCD 2 score of 4 -aspirin and Plavix for 21 days, and then aspirin alone -High intensity statin -Echo pending -Telemetry -Carotid ultrasound - no significant stenosis -TSH, A1c, lipid panel pending -Initially there was concern of possible right small vessel disease, vascular surgery was consulted, patient was on heparin drip now discontinued Nausea -Reglan Depression - Continue home medication DVT ppx: lovenox Code status: full code Anticipated discharge place: home Anticipated discharge time: 01/26 Objective - Vital Signs Vital signs: Vital Signs Temp 97.8 F 01/25/22 08:39 Pulse 75 01/25/22 08:39 Resp 17 01/25/22 08:39 BP 118/70 01/25/22 08:39 Pulse Ox 97 01/25/22 08:39 FiO2 Intake & Output 01/24/22 01/25/22 01/25/22 18:59 06:59 18:59 Intake Total 250.788 240 180 Balance 250.788 240 180 Weight 77.111 kg Intake: Intake, IV Titration 70.788 Amount Heparin Sod,Pork in 0.45% 70.788 NaCl 25,000 unit In 0.45 % NaCl 1 250ml.bag @ 12 UNITS/KG/HR 9.253 mls/hr IV .Q24H ROSALINDA Rx#: [id number] Oral 180 240 180 Other: # Voids 1 - Labs CBC & Chem 7: 01/23/22 19:12 01/23/22 19:12 Labs: Abnormal Lab Results - Last 24 Hours (Table) 01/24/22 Range/Units 12:15 APTT 35.6 H (22.0-30.0) sec
[2022-01-25] MEDS: CLOPIDOGREL 75 MG TAB PO SCH (12:59)
[2022-01-25] MEDS: ENOXAPARIN 40 MG/0.4 ML SYRINGE SQ SCH (12:59)
[2022-01-25] MEDS: ASPIRIN 81 MG PO SCH (12:59)
--- NOTE | 2022-01-25 14:57 | P.PN ---
Subjective Progress Note Date: 01/25/22 Patient seen and examined. No complaints. Not quite feeling himself. Hand feels much better overall. He cannot pinpoint what does not feel right was scissors under this isn't normal. Objective - Vital Signs Vital signs: Vital Signs Temp 97.8 F 01/25/22 12:00 Pulse 79 01/25/22 12:00 Resp 16 01/25/22 12:00 BP 148/79 01/25/22 12:00 Pulse Ox 99 01/25/22 12:00 FiO2 Intake & Output 01/24/22 01/25/22 01/25/22 18:59 06:59 18:59 Intake Total 250.788 240 180 Balance 250.788 240 180 Weight 77.111 kg Intake: Intake, IV Titration 70.788 Amount Heparin Sod,Pork in 0.45% 70.788 NaCl 25,000 unit In 0.45 % NaCl 1 250ml.bag @ 12 UNITS/KG/HR 9.253 mls/hr IV .Q24H ROSALINDA Rx#: [id number] Oral 180 240 180 Other: # Voids 1 - Exam No acute distress sitting comfortably in the bedside chair. HEENT is normocephalic. Heart appears regular at this time. Lungs are clear. Abdomen is soft. Maintains palpable peripheral pulses. Right upper extremity is warm and dry with motor sensory intact - Labs CBC & Chem 7: 01/23/22 19:12 01/23/22 19:12 Assessment and Plan Assessment: Right upper extremity weakness/numbness, now resolved Plan: Patient is doing fine after discontinuation of anticoagulation. Maintain strong palpable peripheral pulses area. ultrasound of the carotids was reviewed, no evidence of significant stenosis. No further vascular intervention or workup is indicated this time. We'll sign off. Please call if necessary.
[2022-01-25 15:39] LABS: Chol/HDL Ratio 4.04 Ratio; LDL Cholesterol,Calculated 122.4 mg/dL (0.0-131.0)
--- NOTE | 2022-01-25 21:43 | CA ---
Transthoracic Echo Report Name: Edvin Golden Age: 66 Gender: M : 1955 Exam Date: 01/25/2022 11:12 Exam Location: [facility] Ht (in): 67 Wt (lb): 170 Ordering Physician: Armando Hernandez MD Attending/Referring Phys: Language Specialist Mary Ann Plata RDCS Procedure CPT: Indications: TIA/stroke symptoms Cardiac Hx: Technical Quality: Good Contrast 1: Total Dose (mL): Contrast 2: Total Dose (mL): MEASUREMENTS (Male / Female) Normal Values 2D ECHO LV Diastolic Diameter PLAX 4.4 cm 4.2 - 5.9 / 3.9 - 5.3 cm LV Systolic Diameter PLAX 2.8 cm IVS Diastolic Thickness 1.1 cm 0.6 - 1.0 / 0.6 - 0.9 cm LVPW Diastolic Thickness 1.1 cm 0.6 - 1.0 / 0.6 - 0.9 cm LV Relative Wall Thickness 0.5 RV Internal Dim ED PLAX 3.0 cm LA Systolic Diameter LX 3.1 cm 3.0 - 4.0 / 2.7 - 3.8 cm LA Volume 30.2 cm??? 18 - 58 / 22 - 52 cm??? M-MODE Aortic Root Diameter MM 3.1 cm MV E Point Septal Separation 0.5 cm AV Cusp Separation MM 2.0 cm DOPPLER AV Peak Velocity 139.0 cm/s AV Peak Gradient 7.7 mmHg MV Area PHT 3.0 cm??? Mitral E Point Velocity 97.6 cm/s Mitral A Point Velocity 95.9 cm/s Mitral E to A Ratio 1.0 MV Deceleration Time 255.4 ms MV E' Velocity 8.6 cm/s Mitral E to MV E' Ratio 11.3 TR Peak Velocity 202.6 cm/s TR Peak Gradient 16.4 mmHg Right Ventricular Systolic Press 21.4 mmHg FINDINGS Left Ventricle Left ventricular ejection fraction is estimated at 60-65 %. Left ventricular cavity size normal. Borderline left ventricular hypertrophy. Right Ventricle Normal right ventricular size and function. Right ventricular systolic pressure within normal limits. Right Atrium Normal right atrial size. Negative agitated saline bubble study for right to left shunt. Left Atrium Normal left atrial size. No evidence for an atrial septal defect. Mitral Valve Structurally normal mitral valve. Aortic Valve Trileaflet aortic valve. No aortic valve stenosis or regurgitation. Tricuspid Valve Mild tricuspid regurgitation. Pulmonic Valve Trace pulmonic regurgitation. Pericardium Normal pericardium. No pericardial effusion. Aorta Normal size aortic root and proximal ascending aorta. CONCLUSIONS Normal LV systolic function Negative bubble study Previewed by: Dr. Jarod Kamara MD (Electronically Signed) Final Date: 25 January 2022 21:42
[2022-01-25] MEDS: ATORVASTATIN 80 MG TAB PO SCH (21:46)
[2022-01-26 02:35] VITALS: RESP 16
[2022-01-26] MEDS: polyethylene glycoL 3350 17 GM POWD.PACK PO SCH (10:07)
[2022-01-26] MEDS: PARoxetine 20 MG TAB PO SCH (10:09)
[2022-01-26] MEDS: CLOPIDOGREL 75 MG TAB PO SCH (10:09)
[2022-01-26] MEDS: ASPIRIN 81 MG PO SCH (10:09)
[2022-01-26] MEDS: ENOXAPARIN 40 MG/0.4 ML SYRINGE SQ SCH (10:09)
[2022-01-26 10:15] VITALS: BP 116/70; PULSE 81; TEMP 97.8
--- NOTE | 2022-01-26 10:46 | P.DS ---
Providers Date of admission: 01/23/22 21:49 Expected date of discharge: 01/26/22 Attending physician: Lenny Parham MD Primary care physician: [facility] Hospital Course: Discharge Diagnosis: TIA Right arm weakness Carotid atherosclerosis Nausea Depression Hospital Course: 66-year-old male with history of depression presented with right arm weakness and numbness. The numbness and weakness lasted only [address] head was negative. There was concern for possible small vessel disease in his right arm. CTA right upper extremity showed very little distal arterial flow suggestive of diffuse small vessel disease. Started on heparin drip. Patient evaluated by vascular surgery, no need for heparin. Patient likely had TIA. Carotid ultrasound showed mild plaque formation, less than 20% stenosis in both internal carotid arteries. Echo showed normal LV systolic function, no left atrial enlargement, negative bubble study. EKG showed sinus rhythm, no atrial fibrillation on telemetry. TSH was normal, LDL elevated at 122, total cholesterol at 201. Patient to be discharged on aspirin, and Plavix, and atorvastatin. He will continue to take aspirin and Plavix for 21 days, and then take aspirin indefinitely. Patient seen and examined at bedside. Vital signs reviewed and stable. General: nontoxic, no distress, appears at stated age Derm: warm, dry Head: atraumatic, normocephalic, symmetric Eyes: EOMI, no lid lag, anicteric sclera Mouth: no lip lesion, mucus membranes moist Cardiovascular: S1S2 reg, no murmur Lungs: CTA bilateral, no rhonchi, no rales , no accessory muscle use Abdominal: soft, nontender to palpation, no guarding, no appreciable organomegaly Ext: no gross muscle atrophy, no edema, no contractures Neuro: CN II-XI grossly intact, no focal neuro deficits Psych: Alert, oriented, appropriate affect A total of 37 minutes of time were spent preparing this complex discharge summary. Patient was discharged on 01/26/22 at 9:51. Patient Condition at Discharge: Stable Plan - Discharge Summary Discharge Rx Participant: No New Discharge Prescriptions: New Atorvastatin [Lipitor] 80 mg PO HS #30 tab Clopidogrel [Plavix] 75 mg PO DAILY #21 tab Aspirin 81 mg PO DAILY #30 tab Continue PARoxetine HCL [Paxil] 20 mg PO DAILY Discharge Medication List PARoxetine HCL [Paxil] 20 mg PO DAILY 01/24/22 [History] Aspirin 81 mg PO DAILY #30 tab 01/26/22 [Rx] Atorvastatin [Lipitor] 80 mg PO HS #30 tab 01/26/22 [Rx] Clopidogrel [Plavix] 75 mg PO DAILY #21 tab 01/26/22 [Rx] Follow up Appointment(s)/Referral(s): [facility] [Primary Care Provider] - 1-2 days Patient Instructions/Handouts: Transient Ischemic Attack (GEN), Heart Healthy Diet (DC) Activity/Diet/Wound Care/Special Instructions: Please take aspirin and plavix both for 21 days and then only aspirin after. Continue to take atorvastatin. Please see PCP in 1-2 days. Discharge Disposition: HOME SELF-CARE
== END 2022-01-26 11:32 | disposition home or self-care (01) | DRG 69 ==
LOC: EC 17:32 → 3SCARD 21:49
PROVIDERS: ADMIT Internal Medicine; ATTEND Internal Medicine
DX: G45.9 Transient cerebral ischemic attack, unspecified (principal); E78.5 Hyperlipidemia, unspecified; I73.9 Peripheral vascular disease, unspecified; I67.89 Other cerebrovascular disease; I10 Essential (primary) hypertension; F32.A Depression, unspecified; M19.90 Unspecified osteoarthritis, unspecified site; K21.9 Gastro-esophageal reflux disease without esophagitis; Z79.899 Other long term (current) drug therapy; Z86.14 Personal history of Methicillin resistant Staphylococcus aureus infection
CPT/HCPCS: 36415; 70450; 80048; 80061; 83036; 84443; 85025; 85610; 85652; 85730; 86140; 93005; 93306; 93880; 96365; 96366; 96375; 99285

== ENCOUNTER 2022-09-05 00:20 | Emergency (ER) | payer OTHER, MEDICARE ==
[2022-09-05 00:28] VITALS: TEMP 98.1
[2022-09-05] MEDS ORDERED: SODIUM CHLORIDE 0.9% 1,000 ML IV STA (00:51)
[2022-09-05] MEDS ORDERED: diphenhydrAMINE 50 MG/ML 1 ML VIAL IVP STA (00:53)
[2022-09-05] MEDS ORDERED: METOCLOPRAMIDE 5 MG/ML 2 ML VIAL IVP STA (00:53)
[2022-09-05 01:18] VITALS: RESP 18
[2022-09-05 01:22] LABS: Basophils % (A) 0 %; Eosinophils # (A) 0.2 k/uL (0-0.7); Eosinophils % (A) 4 %; HCT 41.7 % (39.0-53.0); HGB 14.4 gm/dL (13.0-17.5); Lymphocytes # (A) 1.3 k/uL (1.0-4.8); Lymphocytes % (A) 29 %; MCH 31.9 pg (25.0-35.0); MCHC 34.6 g/dL (31.0-37.0); MCV 92.1 fL (80.0-100.0); Mean Platelet Volume 8.7; Monocytes # (A) 0.4 k/uL (0-1.0); Monocytes % (A) 8 %; Neutrophils # (A) 2.5 k/uL (1.3-7.7); Neutrophils % (A) 55 %; Platelet Count 126 k/uL (150-450); RBC 4.52 m/uL (4.30-5.90); RDW 12.4 % (11.5-15.5); WBC 4.6 k/uL (3.8-10.6)
[2022-09-05 01:33] LABS: ALT 50 U/L (4-49); AST 39 U/L (17-59); African American GFR (CKD) 73 (>60 ml/min/1.73 sqM); Albumin 4.4 g/dL (3.5-5.0); Alkaline Phosphatase 87 U/L (38-126); Anion Gap 11 mmol/L; Blood Urea Nitrogen 18 mg/dL (9-20); Calcium 8.9 mg/dL (8.4-10.2); Carbon Dioxide 26 mmol/L (22-30); Chloride 100 mmol/L (98-107); Glucose 104 mg/dL (74-99); Non-African American GFR(CKD) 63 (>60 ml/min/1.73 sqM); Potassium 3.9 mmol/L (3.5-5.1); Sodium 137 mmol/L (137-145)
[2022-09-05 01:48] LABS: INR 1.1 (<1.2); Prothrombin Time 11.1 sec (9.0-12.0)
--- NOTE | 2022-09-05 02:12 | CT ---
EXAM: CT Head Without Intravenous Contrast CLINICAL HISTORY: ITS.REASON CT Reason: lightheaded TECHNIQUE: Axial computed tomography images of the head/brain without intravenous contrast. This CT exam was performed using one or more of the following dose reduction techniques: automated exposure control, adjustment of the mA and/or kV according to patient size, and/or use of iterative reconstruction technique. COMPARISON: CT Head dated 01/23/2022 FINDINGS: Brain: Unremarkable. No hemorrhage. No significant white matter disease. No edema. Ventricles: Unremarkable. No ventriculomegaly. Bones/joints: Unremarkable. No acute fracture. Soft tissues: Unremarkable. Sinuses: Right maxillary sinus polyp or mucous retention cyst. Opacified right frontal sinus and anterior right ethmoid air cells, stable. No sinus fluid levels. Mastoid air cells: Unremarkable as visualized. No mastoid effusion. IMPRESSION: No acute findings in the head/brain.
[2022-09-05] MEDS ORDERED: KETOROLAC 15 MG/ML 1 ML VIAL IVP STA (02:23)
--- NOTE | 2022-09-05 02:27 | XR ---
EXAM: XR Chest, 1 View CLINICAL HISTORY: ITS.REASON XR Reason: lightheaded TECHNIQUE: Frontal view of the chest. COMPARISON: XR Chest dated 11/17/2019 FINDINGS: Lungs: Unremarkable. No consolidation. Pleural space: Unremarkable. No pneumothorax. Heart: Unremarkable. No cardiomegaly. Mediastinum: Unremarkable. Bones/joints: Unremarkable. IMPRESSION: No evidence of acute cardiopulmonary disease.
--- NOTE | 2022-09-05 02:28 | ED ---
General Adult HPI - General Chief complaint: Dizziness Stated complaint: Numbness in left hand Time Seen by Provider: 09/05/22 00:39 Source: patient, RN notes reviewed, old records reviewed Mode of arrival: ambulatory Limitations: no limitations - History of Present Illness Initial comments: Patient is a 67-year-old male who presents emergency Department with multiple complaints. He has a history of anxiety, acid reflux, hypertension but not on antihypertensive medications presents emergency Department complaining of elevated blood pressures and has been feeling intermittently lightheaded as well as with nonspecific nausea as well as paresthesias that seem to move around his body. States he does feel anxious. Denies chest pain or shortness of breath. Denies fevers or chills. Has no abdominal pain or nausea or vomiting. Does endorse a tension-like headache which he states starts in his neck and is a tightness feeling going into the back of his skull. He does have a history of migraines. Does have some light sensitivity. His no other acute complaints at this time. Presents for further evaluation at this time. - Related Data Home Medications Medication Instructions Recorded Confirmed PARoxetine HCL [Paxil] 20 mg PO DAILY 01/24/22 01/24/22 Previous Rx's Medication Instructions Recorded Aspirin 81 mg PO DAILY #30 tab 01/26/22 Atorvastatin [Lipitor] 80 mg PO HS #30 tab 01/26/22 Clopidogrel [Plavix] 75 mg PO DAILY #21 tab 01/26/22 Allergies Allergy/AdvReac Type Severity Reaction Status Date / Time No Known Allergies Allergy Verified 09/05/22 00:28 Review of Systems ROS Statement: Those systems with pertinent positive or pertinent negative responses have been documented in the HPI. Review of Systems: CONST: Denies fever EYES: Denies blurry vision ENT: Denies nasal congestion C/V: Denies Chest pain RESP: Denies shortness of breath GI: Denies abdominal pain : Denies dysuria SKIN: Denies rash. MSK: Denies joint pain. NEURO: Endorses headache ROS Other: All systems not noted in ROS Statement are negative. Past Medical History Past Medical History: GERD/Reflux, Hyperlipidemia, Hypertension, Osteoarthritis (OA), Pneumonia Additional Past Medical History / Comment(s): constipation.MIGRAINE HEADACHE , History of Any Multi-Drug Resistant Organisms: MRSA Date of last positivie culture/infection: 2011 or 2012 MDRO Source:: R foot Past Surgical History: Hernia Repair Additional Past Surgical History / Comment(s): Hernia repair as , RIGHT foot I&D, COLONOSCOPY Past Anesthesia/Blood Transfusion Reactions: Postoperative Nausea & Vomiting (PONV) Past Psychological History: Depression Smoking Status: Never smoker Past Alcohol Use History: None Reported Past Drug Use History: None Reported - Past Family History Mother Family Medical History: Hypertension Father Family Medical History: Respiratory Disorder Additional Family Medical History / Comment(s): Father is . General Exam - General Exam Comments Initial Comments: General: Appears in no acute distress. Appears mildly anxious. HEAD: Normal with no signs of head trauma. EYES: PERRLA, EOMI, conjunctiva normal, no discharge. ENT: Hearing grossly intact, normal oropharynx. RESPIRATORY: Clear breath sounds bilaterally. No wheezes, rales, or rhonchi. C/V: Regular rate and rhythm. S1 and S2 auscultated. Peripheral pulses 2+ inta ct throughout. ABD: Abd is soft, nontender, nondistended EXT: Normal range of motion, no obvious deformity SKIN: No rashes or lesions observed on exposed skin. NEURO: Alert and oriented 4. GCS of 15. NIH of 0. Has subjective paresthesias located over bilateral hands, bilateral legs. No focal neurological deficits appreciated. Limitations: no limitations Course Vital Signs 09/05/22 09/05/22 00:24 01:18 Temperature 98.1 F Pulse Rate 104 H 102 H Respiratory 20 18 Rate Blood Pressure 177/106 169/92 O2 Sat by Pulse 100 97 Oximetry Medical Decision Making - Medical Decision Making Was pt. sent in by a medical professional or institution (, PA, CONTOUR BAND SAW OPERATOR VERTICAL, urgent care, hospital, or intermediate...) When possible be specific @ -No Did you speak to anyone other than the patient for history (EMS, parent, family, police, friend...)? What history was obtained from this source @ -No Did you review nursing and triage notes (agree or disagree)? Why? @ -I reviewed and agree with nursing and triage notes Were old charts reviewed (outside hosp., previous admission, EMS record, old EKG, old radiological studies, urgent care reports/EKG's, intermediate records)? Report findings @ -No old charts were reviewed Differential Diagnosis (chest pain, altered mental status, abdominal pain women, abdominal pain men, vaginal bleeding, weakness, fever, dyspnea, syncope, headache, dizziness, GI bleed, back pain, seizure, CVA, palpatations, mental health, musculoskeletal)? @ -Differential Headache: Migraine, tension, cluster, carbon monoxide, central venous thrombosis, pension karma temporal arteritis, acute closure glaucoma, intercranial hemorrhage, mastoiditis, sinusitis, head injury, this is not meant to be an all-inclusive list. EKG interpreted by me (3pts min.). @ -As above X-rays interpreted by me (1pt min.). @ -Chest x-ray reveals no obvious acute cardiopulmonary process. CT interpreted by me (1pt min.). @ -CT brain reveals no obvious acute intracranial process. U/S interpreted by me (1pt. min.). @ -None done What testing was considered but not performed or refused? (CT, X-rays, U/S, labs)? Why? @ -None What meds were considered but not given or refused? Why? @ -None Did you discuss the management of the patient with other professionals (professionals i.e. , PA, CONTOUR BAND SAW OPERATOR [employer]ICAL, lab, RT, psych nurse, social worker masters, access analyst, teacher, senior escrow officer, case aide)? Give summary @ -No Was smoking cessation discussed for >3mins.? @ -No Was critical care preformed (if so, how long)? @ -No Were there social determinants of health that impacted care today? How? (Homelessness, low income, unemployed, alcoholism, drug addiction, transportation, low edu. Level, literacy, decrease access to med. care, senior living, rehab)? @ -No Was there de-escalation of care discussed even if they declined (Discuss DNR or withdrawal of care, Hospice)? DNR status @ -No What co-morbidities impacted this encounter? (DM, HTN, Smoking, COPD, CAD, Cancer, CVA, ARF, Chemo, Hep., AIDS, mental health diagnosis, sleep apnea, morbid obesity)? @ -None Was patient admitted / discharged? Hospital course, mention meds given and route, prescriptions, significant lab abnormalities, going to OR and other perti nent info. @ -Based on the patient's presentation and physical exam, he presents with a headache as well as lightheadedness as well as nonspecific paresthesias. He does have a history of anxiety which may be playing a role but I would like to also obtain generalized workup including cardiac, CT brain. He was in agreement with this plan. Symptoms have been ongoing for multiple days. Vital signs remarkable for mild hypertension. EKG shows no evidence of acute pulmonary process. Imaging unremarkable. Labs within acceptable limits. Troponin undetectable.On reevaluation, I did the patient on his workup. Symptoms have resolved. Remains mildly hypertensive. I discussed with him that I do not like to diagnose hypertension here in the department if he is asymptomatic otherwise which she is currently. Recommended he keep a log of his blood pressure readings at home and follow up with his physician this week. He was in agreement with this plan. Strict return precautions discussed. I instructed the patient to follow up with their PCP in the next 1-3 days. I explained that the patient should return to the emergency department if they e xperience any worsening symptoms. Strict return precautions were discussed with the patient. The patient expressed understanding of these instructions. I answered all questions that the patient had. The patient was discharged home in good condition with their prescriptions and follow up information. Undiagnosed new problem with uncertain prognosis? @ -No Drug Therapy requiring intensive monitoring for toxicity (Heparin, Nitro, Insulin, Cardizem)? @ -No Were any procedures done? @ -No Diagnosis/symptom? @ -Headache, paresthesias Acute, or Chronic, or Acute on Chronic? @ -Acute Uncomplicated (without systemic symptoms) or Complicated (systemic symptoms)? @ -Uncomplicated Side effects of treatment? @ -none Exacerbation, Progression, or Severe Exacerbation] @ -no Poses a threat to life or bodily function? @ -no - Lab Data Result diagrams: 09/05/22 01:10 09/05/22 01:10 Lab Results 09/05/22 09/05/22 09/05/22 Range/Units 01:10 01:10 01:10 WBC 4.6 (3.8-10.6) k/uL RBC 4.52 (4.30-5.90) m/uL Hgb 14.4 (13.0-17.5) gm/dL Hct 41.7 (39.0-53.0) % MCV 92.1 (80.0-100.0) fL MCH 31.9 (25.0-35.0) pg MCHC 34.6 (31.0-37.0) g/dL RDW 12.4 (11.5-15.5) % Plt Count 126 L (150-450) k/uL MPV 8.7 Neutrophils % 55 % Lymphocytes % 29 % Monocytes % 8 % Eosinophils % 4 % Basophils % 0 % Neutrophils # 2.5 (1.3-7.7) k/uL Lymphocytes # 1.3 (1.0-4.8) k/uL Monocytes # 0.4 (0-1.0) k/uL Eosinophils # 0.2 (0-0.7) k/uL Basophils # 0.0 (0-0.2) k/uL PT 11.1 (9.0-12.0) sec INR 1.1 (<1.2) Sodium 137 (137-145) mmol/L Potassium 3.9 (3.5-5.1) mmol/L Chloride 100 (98-107) mmol/L Carbon Dioxide 26 (22-30) mmol/L Anion Gap 11 mmol/L BUN 18 (9-20) mg/dL Creatinine 1.19 (0.66-1.25) mg/dL Est GFR (CKD-EPI)AfAm 73 (>60 ml/min/1.73 sqM) Est GFR (CKD-EPI)NonAf 63 (>60 ml/min/1.73 sqM) Glucose 104 H (74-99) mg/dL Calcium 8.9 (8.4-10.2) mg/dL Total Bilirubin 1.0 (0.2-1.3) mg/dL AST 39 (17-59) U/L ALT 50 H (4-49) U/L Alkaline Phosphatase 87 (38-126) U/L Troponin I (0.000-0.034) ng/mL Total Protein 7.0 (6.3-8.2) g/dL Albumin 4.4 (3.5-5.0) g/dL 09/05/22 Range/Units 01:10 WBC (3.8-10.6) k/uL RBC (4.30-5.90) m/uL Hgb (13.0-17.5) gm/dL Hct (39.0-53.0) % MCV (80.0-100.0) fL MCH (25.0-35.0) pg MCHC (31.0-37.0) g/dL RDW (11.5-15.5) % Plt Count (150-450) k/uL MPV Neutrophils % % Lymphocytes % % Monocytes % % Eosinophils % % Basophils % % Neutrophils # (1.3-7.7) k/uL Lymphocytes # (1.0-4.8) k/uL Monocytes # (0-1.0) k/uL Eosinophils # (0-0.7) k/uL Basophils # (0-0.2) k/uL PT (9.0-12.0) sec INR (<1.2) Sodium (137-145) mmol/L Potassium (3.5-5.1) mmol/L Chloride (98-107) mmol/L Carbon Dioxide (22-30) mmol/L Anion Gap mmol/L BUN (9-20) mg/dL Creatinine (0.66-1.25) mg/dL Est GFR (CKD-EPI)AfAm (>60 ml/min/1.73 sqM) Est GFR (CKD-EPI)NonAf (>60 ml/min/1.73 sqM) Glucose (74-99) mg/dL Calcium (8.4-10.2) mg/dL Total Bilirubin (0.2-1.3) mg/dL AST (17-59) U/L ALT (4-49) U/L Alkaline Phosphatase (38-126) U/L Troponin I <0.012 (0.000-0.034) ng/mL Total Protein (6.3-8.2) g/dL Albumin (3.5-5.0) g/dL - EKG Data -: EKG Interpreted by Me EKG Comments: 12-lead Electrocardiogram Interpretation Note EKG was reviewed and interpreted by myself. 12-lead ECG performed at 0058 is interpreted by me as revealing normal sinus rhythm at a rate of 93 beats per minute. Kimberly is normal. WI interval is 177 ms, QRS duration is 94 ms, QTc is 415 ms.. There were no ST or T wave abnormalities to suggest myocardial isc hemia or injury. R wave progression across the precordium was satisfactory. By my interpretation this EKG is non-diagnostic for acute ischemia. Disposition Clinical Impression: Headache, Paresthesia Disposition: HOME SELF-CARE Condition: Good Instructions (If sedation given, give patient instructions): Acute Headache (ED) Is patient prescribed a controlled substance at d/c from ED?: No Referrals: [facility],Clinic [Primary Care Provider] - 1-2 days Time of Disposition: 02:25
[2022-09-05 02:52] VITALS: BP 153/90; PULSE 87
== END 2022-09-05 02:56 | disposition home or self-care (01) ==
LOC: EC 00:20
DX: R51.9 Headache, unspecified (principal); R20.2 Paresthesia of skin; I10 Essential (primary) hypertension; F32.A Depression, unspecified; Z79.899 Other long term (current) drug therapy
CPT/HCPCS: 36415; 93005; 80053; 84484; 85025; 85610; 71045; 70450; 99284; 96374; 96375 ×2; 96361; J1200; J2765; J1885

== ENCOUNTER 2024-01-17 14:41 | Emergency (ER) | payer OTHER, MEDICARE ==
[2024-01-17 14:54] VITALS: RESP 20; TEMP 98
[2024-01-17 15:54] LABS: Basophils % (A) 0 %; Eosinophils # (A) 0.2 k/uL (0-0.7); Eosinophils % (A) 4 %; HCT 35.5 % (39.0-53.0); HGB 11.8 gm/dL (13.0-17.5); Lymphocytes % (A) 23 %; MCH 32.3 pg (25.0-35.0); MCHC 33.3 g/dL (31.0-37.0); MCV 97.2 fL (80.0-100.0); Mean Platelet Volume 7.8; Monocytes # (A) 0.4 k/uL (0-1.0); Monocytes % (A) 9 %; Neutrophils # (A) 2.5 k/uL (1.3-7.7); Neutrophils % (A) 60 %; Platelet Count 175 k/uL (150-450); RBC 3.65 m/uL (4.30-5.90); RDW 12.5 % (11.5-15.5); WBC 4.1 k/uL (3.8-10.6)
[2024-01-17 16:09] LABS: ALT 26 U/L (4-49); AST 31 U/L (17-59); African American GFR (CKD) 65 (>60 ml/min/1.73 sqM); Albumin 4.1 g/dL (3.5-5.0); Alkaline Phosphatase 60 U/L (38-126); Anion Gap 6 mmol/L; Blood Urea Nitrogen 19 mg/dL (9-20); Calcium 9.3 mg/dL (8.4-10.2); Carbon Dioxide 27 mmol/L (22-30); Chloride 106 mmol/L (98-107); Glucose 102 mg/dL (74-99); Non-African American GFR(CKD) 56 (>60 ml/min/1.73 sqM); Potassium 4.2 mmol/L (3.5-5.1); Sodium 139 mmol/L (137-145); Total Bilirubin 0.3 mg/dL (0.2-1.3); Total Protein 6.2 g/dL (6.3-8.2)
--- NOTE | 2024-01-17 16:28 | ED ---
GI Bleed HPI - General Source: patient, RN notes reviewed Mode of arrival: ambulatory Limitations: no limitations <Priyanka Crespo - Last Filed: 01/17/24 16:26> - General Source: patient, RN notes reviewed, old records reviewed Mode of arrival: ambulatory Limitations: no limitations - History of Present Illness MD complaint: blood on toilet paper, blood streaked stool -: week(s) Severity scale (1-10): 1 Quality: painless Consistency: intermittent Improves with: none Worsens with: none Context: history of GI bleed <Ronald Tafoya - Last Filed: 01/21/24 21:29> - General Chief complaint: GI Bleed Stated complaint: blood in stool Time Seen by Provider: 01/17/24 16:26 - History of Present Illness Initial comments: Quick [id number] male presenting for hematochezia. States he has had dark red blood in his stool on and off for several years, however reports that there was a large amount of bright red blood in the toilet bowl during his bowel movement today. States it was painless. He does admit some nonspecific lower abdominal pain as well and generalized weakness. Denies fever, chills, vomiting. He did have a colonoscopy about 1 to 2 years ago where he reports they found polyps. (Priyanka Crespo) This is a 68-year-old male to the ER for dark tarry black stools with generalized weakness and nonspecific abdominal pain (Ronald Tafoya) - Related Data Home Medications Medication Instructions Recorded Confirmed PARoxetine HCL [Paxil] 20 mg PO DAILY 01/24/22 01/24/22 Previous Rx's Medication Instructions Recorded Aspirin 81 mg PO DAILY #30 tab 01/26/22 Atorvastatin [Lipitor] 80 mg PO HS #30 tab 01/26/22 Clopidogrel [Plavix] 75 mg PO DAILY #21 tab 01/26/22 Allergies Allergy/AdvReac Type Severity Reaction Status Date / Time No Known Allergies Allergy Verified 01/19/24 23:11 Review of Systems ROS Other: All systems not noted in ROS Statement are negative. <Priyanka Crespo - Last Filed: 01/17/24 16:26> ROS Other: All systems not noted in ROS Statement are negative. <Ronald Tafoya - Last Filed: 01/21/24 21:29> ROS Statement: Those systems with pertinent positive or pertinent negative responses have been documented in the HPI. Past Medical History Past Medical History: GERD/Reflux, Hyperlipidemia, Hypertension, Osteoarthritis (OA), Pneumonia Additional Past Medical History / Comment(s): constipation.MIGRAINE HEADACHE , History of Any Multi-Drug Resistant Organisms: MRSA Date of last positivie culture/infection: 2011 or 2012 MDRO Source:: R foot Past Surgical History: Hernia Repair Additional Past Surgical History / Comment(s): Hernia repair as , RIGHT foot I&D, COLONOSCOPY Past Anesthesia/Blood Transfusion Reactions: Postoperative Nausea & Vomiting (PONV) Past Psychological History: Depression Smoking Status: Never smoker Past Alcohol Use History: None Reported Past Drug Use History: None Reported - Past Family History Mother Family Medical History: Hypertension Father Family Medical History: Respiratory Disorder Additional Family Medical History / Comment(s): Father is . <Priyanka Crespo - Last Filed: 01/17/24 16:26> General Exam Limitations: no limitations <Priyanka Crespo - Last Filed: 01/17/24 16:26> General appearance: alert, in no apparent distress Head exam: Present: atraumatic, normocephalic, normal inspection Eye exam: Present: normal appearance, PERRL, EOMI. Absent: scleral icterus, conjunctival injection, periorbital swelling ENT exam: Present: normal exam, mucous membranes moist Neck exam: Present: normal inspection. Absent: tenderness, meningismus, lymphadenopathy Respiratory exam: Present: normal lung sounds bilaterally. Absent: respiratory distress, wheezes, rales, rhonchi, stridor Cardiovascular Exam: Present: regular rate, normal rhythm, normal heart sounds. Absent: systolic murmur, diastolic murmur, rubs, gallop, clicks GI/Abdominal exam: Present: soft, normal bowel sounds. Absent: distended, tenderness, guarding, rebound, rigid Extremities exam: Present: normal inspection, full ROM, normal capillary refill. Absent: tenderness, pedal edema, joint swelling, calf tenderness Back exam: Present: normal inspection Neurological exam: Present: alert, oriented X3, CN II-XII intact Psychiatric exam: Present: normal affect, normal mood Skin exam: Present: warm, dry, intact, normal color. Absent: rash <Ronald Tafoya - Last Filed: 01/21/24 21:29> - General Exam Comments Initial Comments: Visual Physical Exam Vital signs reviewed General: Well-appearing, nontoxic, no acute distress. Head: Normocephalic, atraumatic Eyes: PERRLA, EOMI ENT: Airway patent Chest: Nonlabored breathing Skin: No visual rash, normal skin tone Neuro: Alert and oriented 3 Musculoskeletal: No gross abnormalities (CrespoPriyanka) Course <Ronald Tafoya - Last Filed: 01/21/24 21:29> Vital Signs 01/17/24 01/17/24 14:50 18:28 Temperature 98.0 F Pulse Rate 110 H 82 Respiratory 20 20 Rate Blood Pressure 127/76 137/80 O2 Sat by Pulse 100 99 Oximetry - Reevaluation(s) Reevaluation #1: 01/17/24 18:20 Medical record is reviewed (Ronald Tafoya) Reevaluation #2: 01/17/24 18:47 Patient has increasing hemoglobin here in the ER (Ronald Tafoya) Reevaluation #3: 01/17/24 18:48 Patient informed of results and questions answered (Ronald Tafoya) Reevaluation #4: Was pt. sent in by a medical professional or institution (, PA, COAL WASHER, urgent care, hospital, or group home...) When possible be specific @ -no Did you speak to anyone other than the patient for history (EMS, parent, family, police, friend...)? What history was obtained from this source @ -no Did you review nursing and triage notes (agree or disagree)? Why? @ -agree Are old charts reviewed (outside hosp., previous admission, EMS record, old EKG, old radiological studies, urgent care reports/EKG's, group home records)? Report findings @ -yes Differential Diagnosis (chest pain, altered mental status, abdominal pain women, abdominal pain men, vaginal bleeding, weakness, fever, dyspnea, syncope, headache, dizziness, GI bleed, back pain, seizure, CVA, palpatations, mental health, musculoskeletal)? @ -prior EKG interpreted by me (3pts min.). @ -no X-rays interpreted by me (1pt min.). @ -no CT interpreted by me (1pt min.). @ -yes negative for acute disease U/S interpreted by me (1pt. min.). @ -no What testing was considered but not performed or refused? (CT, X-rays, U/S, labs)? Why? @ -none What meds were considered but not given or refused? Why? @ -none Did you discuss the management of the patient with other professionals (myrtle daley i.e. , PA, COAL WASHER, lab, RT, psych nurse, social group worker, boxing inspector, teacher, placement officer, major case detective)? Give summary @ -no Was smoking cessation discussed for >3mins.? @ -no Was critical care preformed (if so, how long)? @ -no Were there social determinants of health that impacted care today? How? (Homelessness, low income, unemployed, alcoholism, drug addiction, transportation, low edu. Level, literacy, decrease access to med. care, care home, rehab)? @ -none Was there de-escalation of care discussed even if they declined (Discuss DNR or withdrawal of care, Hospice)? DNR status @ -no What co-morbidities impacted this encounter? (DM, HTN, Smoking, COPD, CAD, Cancer, CVA, ARF, Chemo, Hep., AIDS, mental health diagnosis, sleep apnea, morbid obesity)? @ -none Was patient admitted / discharged? Hospital course, mention meds given and route, prescriptions, significant lab abnormalities, going to OR and other pertinent info. @ - 68 male to ER for evaluation of dark stools, patient has increasing hemoglobin throughout ER stay and can be discharged home Discharge Undiagnosed new problem with uncertain prognosis? @ -no Drug Therapy requiring intensive monitoring for toxicity (Heparin, Nitro, Insulin, Cardizem)? @ -no Were any procedures done? @ -no Diagnosis/symptom? @ -GI bleed Acute, or Chronic, or Acute on Chronic? @ -Acute Uncomplicated (without systemic symptoms) or Complicated (systemic symptoms)? @ -Complicated Side effects of treatment? @ -no Exacerbation, Progression, or Severe Exacerbation? @ -exacerbation Poses a threat to life or bodily function? How? (Chest pain, [place], ND, pneumonia, PE, COPD, DKA, ARF, appy, cholecystitis, CVA, Diverticulitis, Homicidal, Suicidal, threat to staff... and all critical care pts) @ -yes with GI bleed (Roskopp,Ronald B) Reevaluation #5: Differential GI Bleed: Esophageal varices, aortoenteric fistula, Giselle-Sandhu, gastritis, peptic ulcer disease, diverticulosis, inflammatory bowel disease, hemorrhoids, fissure, colitis, malignancy, Meckel's diverticulum, this is not meant to be an all- inclusive list. (Ronald Tafoya) Medical Decision Making - Lab Data Result diagrams: 01/17/24 15:35 01/17/24 15:35 <Priyanka Crespo - Last Filed: 01/17/24 16:26> - Lab Data Result diagrams: 01/17/24 18:24 01/17/24 15:35 - Radiology Data Radiology results: report reviewed (CT abdomen pelvis negative for acute disease), image reviewed <Ronald Tafoya - Last Filed: 01/21/24 21:29> - Medical Decision Making I completed the quick note portion of this chart signed rPiyanka Cerspo PA-C (Priyanka Crespo) 68 male to ER for evaluation of dark stools, patient has increasing hemoglobin throughout ER stay and can be discharged home (Ronald Tafoya) - Lab Data Lab Results 01/17/24 01/17/24 01/17/24 Range/Units 15:28 15:35 15:35 WBC 4.1 (3.8-10.6) k/uL RBC 3.65 L (4.30-5.90) m/uL Hgb 11.8 L (13.0-17.5) gm/dL Hct 35.5 L (39.0-53.0) % MCV 97.2 (80.0-100.0) fL MCH 32.3 (25.0-35.0) pg MCHC 33.3 (31.0-37.0) g/dL RDW 12.5 (11.5-15.5) % Plt Count 175 (150-450) k/uL MPV 7.8 Neutrophils % 60 % Lymphocytes % 23 % Monocytes % 9 % Eosinophils % 4 % Basophils % 0 % Neutrophils # 2.5 (1.3-7.7) k/uL Lymphocytes # 1.0 (1.0-4.8) k/uL Monocytes # 0.4 (0-1.0) k/uL Eosinophils # 0.2 (0-0.7) k/uL Basophils # 0.0 (0-0.2) k/uL APTT 25.1 (22.0-30.0) sec Sodium (137-145) mmol/L Potassium (3.5-5.1) mmol/L Chloride (98-107) mmol/L Carbon Dioxide (22-30) mmol/L Anion Gap mmol/L BUN (9-20) mg/dL Creatinine (0.66-1.25) mg/dL Est GFR (CKD-EPI)AfAm (>60 ml/min/1.73 sqM) Est GFR (CKD-EPI)NonAf (>60 ml/min/1.73 sqM) Glucose (74-99) mg/dL Calcium (8.4-10.2) mg/dL Total Bilirubin (0.2-1.3) mg/dL AST (17-59) U/L ALT (4-49) U/L Alkaline Phosphatase (38-126) U/L Troponin I (0.000-0.034) ng/mL Total Protein (6.3-8.2) g/dL Albumin (3.5-5.0) g/dL Blood Type Blood Type Confirm O Positive Blood Type Recheck Bld Type Recheck Status Antibody Screen Spec Expiration Date 01/17/24 01/17/24 01/17/24 Range/Units 15:35 15:35 15:35 WBC (3.8-10.6) k/uL RBC (4.30-5.90) m/uL Hgb (13.0-17.5) gm/dL Hct (39.0-53.0) % MCV (80.0-100.0) fL MCH (25.0-35.0) pg MCHC (31.0-37.0) g/dL RDW (11.5-15.5) % Plt Count (150-450) k/uL MPV Neutrophils % % Lymphocytes % % Monocytes % % Eosinophils % % Basophils % % Neutrophils # (1.3-7.7) k/uL Lymphocytes # (1.0-4.8) k/uL Monocytes # (0-1.0) k/uL Eosinophils # (0-0.7) k/uL Basophils # (0-0.2) k/uL APTT (22.0-30.0) sec Sodium 139 (137-145) mmol/L Potassium 4.2 (3.5-5.1) mmol/L Chloride 106 (98-107) mmol/L Carbon Dioxide 27 (22-30) mmol/L Anion Gap 6 mmol/L BUN 19 (9-20) mg/dL Creatinine 1.30 H (0.66-1.25) mg/dL Est GFR (CKD-EPI)AfAm 65 (>60 ml/min/1.73 sqM) Est GFR (CKD-EPI)NonAf 56 (>60 ml/min/1.73 sqM) Glucose 102 H (74-99) mg/dL Calcium 9.3 (8.4-10.2) mg/dL Total Bilirubin 0.3 (0.2-1.3) mg/dL AST 31 (17-59) U/L ALT 26 (4-49) U/L Alkaline Phosphatase 60 (38-126) U/L Troponin I <0.012 (0.000-0.034) ng/mL Total Protein 6.2 L (6.3-8.2) g/dL Albumin 4.1 (3.5-5.0) g/dL Blood Type O Positive Blood Type Confirm Blood Type Recheck No Previous Record Bld Type Recheck Status CABO Indicated Antibody Screen NEGATIVE Spec Expiration Date 01/20/2024 - 233401/17/24 Range/Units 18:24 WBC 5.3 (3.8-10.6) k/uL RBC 3.87 L (4.30-5.90) m/uL Hgb 12.5 L (13.0-17.5) gm/dL Hct 36.3 L (39.0-53.0) % MCV 93.9 (80.0-100.0) fL MCH 32.2 (25.0-35.0) pg MCHC 34.3 (31.0-37.0) g/dL RDW 13.0 (11.5-15.5) % Plt Count 185 (150-450) k/uL MPV 8.3 Neutrophils % 59 % Lymphocytes % 24 % Monocytes % 9 % Eosinophils % 4 % Basophils % 1 % Neutrophils # 3.2 (1.3-7.7) k/uL Lymphocytes # 1.3 (1.0-4.8) k/uL Monocytes # 0.5 (0-1.0) k/uL Eosinophils # 0.2 (0-0.7) k/uL Basophils # 0.0 (0-0.2) k/uL APTT (22.0-30.0) sec Sodium (137-145) mmol/L Potassium (3.5-5.1) mmol/L Chloride (98-107) mmol/L Carbon Dioxide (22-30) mmol/L Anion Gap mmol/L BUN (9-20) mg/dL Creatinine (0.66-1.25) mg/dL Est GFR (CKD-EPI)AfAm (>60 ml/min/1.73 sqM) Est GFR (CKD-EPI)NonAf (>60 ml/min/1.73 sqM) Glucose (74-99) mg/dL Calcium (8.4-10.2) mg/dL Total Bilirubin (0.2-1.3) mg/dL AST (17-59) U/L ALT (4-49) U/L Alkaline Phosphatase (38-126) U/L Troponin I (0.000-0.034) ng/mL Total Protein (6.3-8.2) g/dL Albumin (3.5-5.0) g/dL Blood Type Blood Type Confirm Blood Type Recheck Bld Type Recheck Status Antibody Screen Spec Expiration Date Disposition <Priyanka Crespo - Last Filed: 01/17/24 16:26> Is patient prescribed a controlled substance at d/c from ED?: No Time of Disposition: 18:50 <Ronald Tafoya - Last Filed: 01/21/24 21:29> Clinical Impression: Gastrointestinal hemorrhage Disposition: HOME SELF-CARE Condition: Good Instructions (If sedation given, give patient instructions): Gastrointestinal Bleeding (ED) Referrals: [facility],Clinic [Primary Care Provider] - 1-2 days
--- NOTE | 2024-01-17 17:27 | CT ---
EXAMINATION TYPE: CT abdomen pelvis w con DATE OF EXAM: 01/17/2024 COMPARISON: None INDICATION: GI bleed DLP: 1687.2 mGycm, Automated exposure control for dose reduction was used. CONTRAST: 100 ml mL of Isovue 370. Study performed without Oral Contrast TECHNIQUE: Axial images were obtained from above the diaphragm to the pubic rami in the axial plane a t 5 mm thick sections. Reconstructed images are reviewed on the computer in the coronal plane. FINDINGS: Limited CT sections are obtained the lung bases. The lung bases are clear. CT ABDOMEN: Liver: Normal Spleen: Normal Pancreas: Normal Adrenal glands: The adrenal glands are normal. Gallbladder: Normal Kidneys: No masses are evident. No hydronephrosis is present. No cysts are present. No renal stone s are evident. No hydroureter evident. There may be extrarenal pelves bilaterally. Aorta: Vascular calcification is within the aorta. Inferior vena cava: Normal. CT PELVIS: Loops of bowel within the abdomen and pelvis are normal. There are loops of bowel which are incom pletely distended or lack oral contrast limiting their evaluation. Appendix: Not identified. No dilated tubular structure or inflammatory change evident. Urinary bladder: Normal. Genitourinary structures: Prostate contains calcification. Osseous structures: No suspicious lytic or sclerotic lesions. IMPRESSION: 1. No suspicious abnormality to account for GI bleeding X-Ray Will Sandoval, , 01/17/2024 5:25 PM
[2024-01-17] MEDS: PANTOPRAZOLE 40 MG/10 ML VIAL IVP STA (18:28)
[2024-01-17 18:33] VITALS: BP 137/80; PULSE 82
[2024-01-17] MEDS: ONDANSETRON 4 MG/2 ML VIAL IVP STA (18:33)
[2024-01-17 18:44] LABS: Basophils % (A) 1 %; Eosinophils # (A) 0.2 k/uL (0-0.7); Eosinophils % (A) 4 %; HCT 36.3 % (39.0-53.0); HGB 12.5 gm/dL (13.0-17.5); Lymphocytes # (A) 1.3 k/uL (1.0-4.8); Lymphocytes % (A) 24 %; MCH 32.2 pg (25.0-35.0); MCHC 34.3 g/dL (31.0-37.0); MCV 93.9 fL (80.0-100.0); Mean Platelet Volume 8.3; Monocytes # (A) 0.5 k/uL (0-1.0); Monocytes % (A) 9 %; Neutrophils # (A) 3.2 k/uL (1.3-7.7); Neutrophils % (A) 59 %; Platelet Count 185 k/uL (150-450); RBC 3.87 m/uL (4.30-5.90); WBC 5.3 k/uL (3.8-10.6)
== END 2024-01-17 19:06 | disposition home or self-care (01) ==
LOC: EC 14:41
DX: K92.2 Gastrointestinal hemorrhage, unspecified (principal)
CPT/HCPCS: 36415; 74177; 80053; 84484; 85025; 85730; 86850; 86900; 86901; 96374; 99285

== ENCOUNTER 2024-01-19 23:08 | Emergency (ER) | payer OTHER, MEDICARE ==
[2024-01-19 23:11] VITALS: TEMP 98.5
[2024-01-19 23:26] LABS: Basophils % (A) 1 %; Eosinophils # (A) 0.3 k/uL (0-0.7); Eosinophils % (A) 5 %; HCT 35.6 % (39.0-53.0); HGB 12.2 gm/dL (13.0-17.5); Lymphocytes # (A) 2.1 k/uL (1.0-4.8); Lymphocytes % (A) 34 %; MCH 32.6 pg (25.0-35.0); MCHC 34.4 g/dL (31.0-37.0); MCV 94.7 fL (80.0-100.0); Monocytes # (A) 0.5 k/uL (0-1.0); Monocytes % (A) 8 %; Neutrophils % (A) 50 %; Platelet Count 204 k/uL (150-450); RBC 3.75 m/uL (4.30-5.90); WBC 6.1 k/uL (3.8-10.6)
--- NOTE | 2024-01-19 23:34 | ED ---
Abdominal Pain HPI - General Source: patient Mode of arrival: ambulatory Limitations: no limitations <Kalpana Mc - Last Filed: 01/19/24 23:34> <Luke Comer - Last Filed: 01/20/24 00:11> - General Chief Complaint: Abdominal Pain Stated Complaint: Abd Pain Time Seen by Provider: 01/19/24 23:34 - History of Present Illness Initial Comments: 68-year-old male presenting with chief complaint of abdominal pain. States that it started this evening and feels like a cramping and burning pain. No nausea vomiting or diarrhea. (Kalpana Mc) Patient presents to the ED stating that he was laying down about an hour ago when he developed burning abdominal pain. Patient states that his pain was 6/10 in severity at that time, so he came to the ED. Patient states that his pain has pretty much resolved at this time. Patient denies trauma or injury, fever or chills, chest pain or pressure, dyspnea, cough or cold symptoms, palpitations, dizziness, back or flank pain, nausea or vomiting, diarrhea or constipation, bloody or melanotic stool, dysuria/hematuria/urinary frequency/urinary symptoms, or any other symptoms or complaints. Patient states that he feels much better at this time. (Luke Comer) - Related Data Home Medications Medication Instructions Recorded Confirmed PARoxetine HCL [Paxil] 20 mg PO DAILY 01/24/22 01/24/22 Previous Rx's Medication Instructions Recorded Aspirin 81 mg PO DAILY #30 tab 01/26/22 Atorvastatin [Lipitor] 80 mg PO HS #30 tab 01/26/22 Clopidogrel [Plavix] 75 mg PO DAILY #21 tab 01/26/22 Allergies Allergy/AdvReac Type Severity Reaction Status Date / Time No Known Allergies Allergy Verified 01/19/24 23:11 Review of Systems ROS Other: All systems not noted in ROS Statement are negative. <Kalpana Mc - Last Filed: 01/19/24 23:34> ROS Other: All systems not noted in ROS Statement are negative. <Luke Comer - Last Filed: 01/20/24 00:11> ROS Statement: Those systems with pertinent positive or pertinent negative responses have been documented in the HPI. Past Medical History Past Medical History: GERD/Reflux, Hyperlipidemia, Hypertension, Osteoarthritis (OA), Pneumonia Additional Past Medical History / Comment(s): constipation.MIGRAINE HEADACHE , History of Any Multi-Drug Resistant Organisms: MRSA Date of last positivie culture/infection: 2011 or 2012 MDRO Source:: R foot Past Surgical History: Hernia Repair Additional Past Surgical History / Comment(s): Hernia repair as , RIGHT foot I&D, COLONOSCOPY Past Anesthesia/Blood Transfusion Reactions: Postoperative Nausea & Vomiting (PONV) Past Psychological History: Depression Smoking Status: Never smoker Past Alcohol Use History: None Reported Past Drug Use History: None Reported - Past Family History Mother Family Medical History: Hypertension Father Family Medical History: Respiratory Disorder Additional Family Medical History / Comment(s): Father is . <Kalpana Mc - Last Filed: 01/19/24 23:34> General Exam Limitations: no limitations <Kalpana Mc - Last Filed: 01/19/24 23:34> Limitations: no limitations General appearance: alert, in no apparent distress Eye exam: Present: normal appearance ENT exam: Present: mucous membranes moist Respiratory exam: Present: normal lung sounds bilaterally. Absent: respiratory distress, wheezes, rales, rhonchi, stridor Cardiovascular Exam: Present: regular rate, normal rhythm, normal heart sounds, other (Normal radial pulses bilaterally) GI/Abdominal exam: Present: soft, normal bowel sounds. Absent: distended, tenderness, guarding Extremities exam: Absent: pedal edema Back exam: Absent: CVA tenderness (R), CVA tenderness (L) Neurological exam: Present: alert, oriented X3 Psychiatric exam: Present: normal affect Skin exam: Present: warm, dry, intact, normal color <Luke Comer - Last Filed: 01/20/24 00:11> - General Exam Comments Initial Comments: Visual Physical Exam Vital signs reviewed General: Well-appearing, nontoxic, no acute distress. Head: Normocephalic, atraumatic Eyes: PERRLA, EOMI ENT: Airway patent Chest: Nonlabored breathing Skin: No visual rash, normal skin tone Neuro: Alert and oriented 3 Musculoskeletal: No gross abnormalities (Kalpana Mc) Course Vital Signs 01/19/24 23:10 Temperature 98.5 F Pulse Rate 119 H Respiratory 20 Rate Blood Pressure 162/94 O2 Sat by Pulse 100 Oximetry Medical Decision Making - Lab Data Result diagrams: 01/19/24 23:13 <Kalpana Mc - Last Filed: 01/19/24 23:34> - Lab Data Result diagrams: 01/19/24 23:13 01/19/24 23:13 <Luke Comer - Last Filed: 01/20/24 00:11> - Medical Decision Making I performed the quick note portion of this visit, electronically signed Kalpana Mc PA-C (Kalpana Mc) Was pt. sent in by a medical professional or institution (, [facility], [employer] WIRELESS MANAGER, urgent care, hospital, or [place] health care facility...) When possible be specific @ -No Did you speak to anyone other than the patient for history (EMS, parent, family, police, friend...)? What history was obtained from this source @ -No Did you review nursing and triage notes (agree or disagree)? Why? @ -I reviewed and agree with nursing and triage notes Were old charts reviewed (outside hosp., previous admission, EMS record, old EKG, old radiological studies, urgent care reports/EKG's, [place] health care facility records)? Report findings @ -No old charts were reviewed Differential Diagnosis (chest pain, altered mental status, abdominal pain women, abdominal pain men, vaginal bleeding, weakness, fever, dyspnea, syncope, headac he, dizziness, GI bleed, back pain, seizure, CVA, palpatations, mental health, musculoskeletal)? @ -Differential Abdominal Pain Men: Appendicitis, cholecystitis, diverticulosis, diverticulitis, pancreatitis, hepatitis, incarcerated hernia, bowel obstruction, constipation, inflammatory bowel, hepatitis, peptic ulcer disease, perforated viscus, GERD, this is not meant to be an all-inclusive list EKG interpreted by me (3pts min.). @ -None done X-rays interpreted by me (1pt min.). @ -KUB was reviewed myself and shows a nonspecific bowel gas pattern. I agree with the radiologist's interpretation as above. CT interpreted by me (1pt min.). @ -None done U/S interpreted by me (1pt. min.). @ -None done What testing was considered but not performed or refused? (CT, X-rays, U/S, labs)? Why? @ -None What meds were considered but not given or refused? Why? @ -None Did you discuss the management of the patient with other professionals (professionals i.e. , PA, [employer] WIRELESS MANAGER, lab, RT, psych nurse, social media content manager, director case management, teacher, inspectors and regulatory officers, caseworker intake)? Give summary @ -No Was smoking cessation discussed for >3mins.? @ -No Was critical care preformed (if so, how long)? @ -No Were there social determinants of health that impacted care today? How? (Homelessness, low income, unemployed, alcoholism, drug addiction, transportation, low edu. Level, literacy, decrease access to med. care, halfway, rehab)? @ -No Was there de-escalation of care discussed even if they declined (Discuss DNR or withdrawal of care, Hospice)? DNR status @ -No What co-morbidities impacted this encounter? (DM, HTN, Smoking, COPD, CAD, Cancer, CVA, ARF, Chemo, Hep., AIDS, mental health diagnosis, sleep apnea, mo rbid obesity)? @ -None Was patient admitted / discharged? Hospital course, mention meds given and r oute, prescriptions, significant lab abnormalities, going to OR and other pertinent info. @ -Patient reports having transient "burning" abdominal pain which has now practically resolved. Patient has a benign abdominal exam, and he has no abdominal tenderness on examination. Patient's labs are fairly unremarkable. Patient's KUB is also unremarkable. I do not suspect an emergent medical or surgical condition at this time. I have discussed obtaining CT imaging with the patient, but he declines at this time given his pain has improved. Patient is aware of his test results, and he feels comfortable being discharged home at this time. He was counseled about abdominal pain, and he was clearly explained return and follow-up instructions. He was instructed to follow-up closely with his primary care provider. He feels comfortable with this plan. Undiagnosed new problem with uncertain prognosis? @ -No Drug Therapy requiring intensive monitoring for toxicity (Heparin, Nitro, Insulin, Cardizem)? @ -No Were any procedures done? @ -No Diagnosis/symptom? @ -Abdominal pain Acute, or Chronic, or Acute on Chronic? @ -Acute Uncomplicated (without systemic symptoms) or Complicated (systemic symptoms)? @ -Uncomplicated Side effects of treatment? @ -No Exacerbation, Progression, or Severe Exacerbation? @ -No Poses a threat to life or bodily function? How? (Chest pain, [place], [place], pneumonia, PE, COPD, DKA, ARF, appy, cholecystitis, CVA, Diverticulitis, Homicidal, Suicidal, threat to staff... and all critical care pts) @ -No (Luke Comer) - Lab Data Lab Results 01/19/24 01/19/24 01/19/24 Range/Units 23:13 23:13 23:13 WBC 6.1 (3.8-10.6) k/uL RBC 3.75 L (4.30-5.90) m/uL Hgb 12.2 L (13.0-17.5) gm/dL Hct 35.6 L (39.0-53.0) % MCV 94.7 (80.0-100.0) fL MCH 32.6 (25.0-35.0) pg MCHC 34.4 (31.0-37.0) g/dL RDW 13.0 (11.5-15.5) % Plt Count 204 (150-450) k/uL MPV 8.0 Neutrophils % 50 % Lymphocytes % 34 % Monocytes % 8 % Eosinophils % 5 % Basophils % 1 % Neutrophils # 3.0 (1.3-7.7) k/uL Lymphocytes # 2.1 (1.0-4.8) k/uL Monocytes # 0.5 (0-1.0) k/uL Eosinophils # 0.3 (0-0.7) k/uL Basophils # 0.0 (0-0.2) k/uL Sodium 137 (137-145) mmol/L Potassium 4.4 (3.5-5.1) mmol/L Chloride 103 (98-107) mmol/L Carbon Dioxide 27 (22-30) mmol/L Anion Gap 7 mmol/L BUN 28 H (9-20) mg/dL Creatinine 1.37 H (0.66-1.25) mg/dL Est GFR (CKD-EPI)AfAm 61 (>60 ml/min/1.73 sqM) Est GFR (CKD-EPI)NonAf 53 (>60 ml/min/1.73 sqM) Glucose 114 H (74-99) mg/dL Plasma Lactic Acid Elmer 0.7 (0.7-2.0) mmol/L Calcium 9.2 (8.4-10.2) mg/dL Total Bilirubin 0.5 (0.2-1.3) mg/dL AST 40 (17-59) U/L ALT 28 (4-49) U/L Alkaline Phosphatase 58 (38-126) U/L Total Protein 6.8 (6.3-8.2) g/dL Albumin 4.4 (3.5-5.0) g/dL Amylase 78 (30-110) U/L Lipase 166 (23-300) U/L - Radiology Data KUB: Overall nonobstructive bowel gas pattern remains present. (Luke Comer) Disposition <Kalpana Mc - Last Filed: 01/19/24 23:34> Is patient prescribed a controlled substance at d/c from ED?: No Time of Disposition: 00:11 <Luke Comer - Last Filed: 01/20/24 00:11> Clinical Impression: Abdominal pain Disposition: HOME SELF-CARE Condition: Stable Instructions (If sedation given, give patient instructions): Abdominal Pain (ED) Additional Instructions: Return to the ER immediately should you develop new or worsening pain, a fever, vomiting, feeling dizzy or faint, shortness of breath, or new or worsening symptoms. Follow-up closely with your primary care provider. Referrals: [facility],Clinic [Primary Care Provider] - 1-2 days
[2024-01-19 23:40] LABS: ALT 28 U/L (4-49); African American GFR (CKD) 61 (>60 ml/min/1.73 sqM); Albumin 4.4 g/dL (3.5-5.0); Amylase 78 U/L (30-110); Anion Gap 7 mmol/L; Blood Urea Nitrogen 28 mg/dL (9-20); Calcium 9.2 mg/dL (8.4-10.2); Carbon Dioxide 27 mmol/L (22-30); Chloride 103 mmol/L (98-107); Glucose 114 mg/dL (74-99); Lipase 166 U/L (23-300); Non-African American GFR(CKD) 53 (>60 ml/min/1.73 sqM); Sodium 137 mmol/L (137-145); Total Bilirubin 0.5 mg/dL (0.2-1.3); Total Protein 6.8 g/dL (6.3-8.2)
[2024-01-19 23:48] LABS: AST 40 U/L (17-59); Potassium 4.4 mmol/L (3.5-5.1)
--- NOTE | 2024-01-19 23:48 | XR ---
EXAMINATION TYPE: XR KUB DATE OF EXAM: 01/19/2024 11:43 PM CLINICAL HISTORY: Abdominal pain for one hour. TECHNIQUE: Two Upright KUB images of the abdomen are obtained. COMPARISON: Prior CT 2 days earlier FINDINGS: Scattered gas is seen in non-distended small bowel loops. Gas and fecal material is seen in non-distended colon. Mild bibasilar linear atelectasis. No free air. No suspicious calcifications. L evoconvex scoliosis in the lumbar spine is redemonstrated. Moderate narrowing of both hip joints is a gain seen. IMPRESSION: Overall nonobstructive bowel gas pattern remains present. [facility], , 01/19/2024 11:46 PM
[2024-01-19 23:49] LABS: Alkaline Phosphatase 58 U/L (38-126)
[2024-01-20 00:22] VITALS: BP 148/72; PULSE 98; RESP 18
== END 2024-01-20 00:21 | disposition home or self-care (01) ==
LOC: EC 23:08
DX: R10.9 Unspecified abdominal pain (principal)
CPT/HCPCS: 36415; 74018; 80053; 82150; 83605; 83690; 85025; 99284